=== PATIENT | female | born 1965 | race African-American/Black ===

== ENCOUNTER → 2016-06-28 | Outpatient (CLI) | payer MEDICARE, MEDICAID ==
[~2016-06-28] VITALS: Ht 149.9 cm; Wt 93.4 kg
[~2016-06-28] MED LIST: ACETAMINOPHEN500 MG ORAL; ALBUTEROL SULF8.5 GM INH; ALPRAZOLAM0.5 MG PO; ASPIRIN81 MG ORAL; ATENOLOL25 MG ORAL; AZITHROMYCIN250 MG ORAL; BENADRYL PO; BENADRYL50 MG ORAL; COLACE100 MG ORAL; CYCLOBENZAPRINE10 MG ORAL; CYMBALTA20 MG ORAL; DILAUDID8 MG PO; FLEXERIL10 MG PO; GABAPENTIN300 MG ORAL; LEVAQUIN500 MG ORAL; LORAZEPAM2 MG ORAL; LORTAB 5-500 T1 EACH PO; MEDROL DOSEPAK4 MG ORAL; METHADONE H5 MG/5 ML GT; NITROSTAT0.4 M1 SL; NORCO; NORCO 10-325 T1 EACH ORAL; NORCO 10/3251 EA ORAL; NORCO 5-325 TA1 EACH ORAL; OMEPRAZOLE20 M2 ORAL; OMEPRAZOLE40 MG PO; OXYCODONE HCL30 MG ORAL; OXYCONTIN; OXYCONTIN30 MG ORAL; POTASSIUM CHLO20 ME2 ORAL; PREDNISONE20 MG ORAL; PRILOSEC20 MG ORAL; PROAIR HFA8.5 GM INH; PROTONIX40 MG ORAL; TENORMIN25 MG ORAL; TOPAMAX50 MG ORAL; TRAMADOL HCL50 MG ORAL; TRAZODONE HCL300 MG PO; VERAPAMIL ER P300 MG PO; XANAX1 MG ORAL; ZANTAC150 MG ORAL
[2016-06-28 14:26] VITALS: BP 98/46
--- NOTE | 2016-06-28 15:13 | GI Initial Consult Note ---
History of Present Illness General Date patient seen: Jun 28, 2016 Time patient seen: 15:04 Referring physician: KYLEE Reason for Consultation: ANEMIA Present Illness HPI 50 year old female patient referred to [facility] by Dr. James for evaluation of anemia. the patient presents today with c/o of GERD, constipation, rectal bleed (black stool), occasional N/V, and abdominal bloating. Home Meds Active Scripts Albuterol Sulfate* (ALBUTEROL SULFATE MDI*) 8.5 Gm Hfa.aer.ad, 2 PUFF INH Q3H, # 1 INH 0 Refills Prov:Mere Florence P.ADina 05/27/15 Methylprednisolone (Methylprednisolone) 4 Mg Tab, 4 MG ORAL .as directed, #1 PACK 0 Refills Prov:Mere FlorenceADina 05/27/15 Levofloxacin* (LEVAQUIN*) 500 Mg Tablet, 500 MG ORAL DAILY, #7 TAB Prov:Mere Florence P.A. 05/27/15 Azithromycin* (ZITHROMAX*) 250 Mg Tablet, 250 MG ORAL DAILY, #6 TAB Take two tablets by mouth today, then take one tablet by mouth daily for four days Prov:BHARGAVI FRANCO M.D. 03/14/15 Albuterol Sulfate* (ALBUTEROL SULFATE MDI*) 8.5 Gm Hfa.aer.ad, 2 PUFF INH Q4H, # 1 INH 0 Refills Prov:BHARGAVI FRANCO M.D. 03/14/15 Prednisone* (PREDNISONE*) 20 Mg Tablet, 40 MG ORAL DAILY, #10 TAB Prov:BHARGAVI FRANCO M.D. 03/14/15 Tramadol Hcl* (ULTRAM*) 50 Mg Tablet, 50 MG ORAL Q6H Y for For Pain, #20 TAB Prov:JESUS SLADE M.D. 10/25/14 Pantoprazole* (PROTONIX*) 40 Mg Tabec, 40 MG ORAL DAILY for 30 Days, TAB Prov:JEAN CLAUDE ROMO 09/18/14 Nitroglycerin (NITROSTAT) 0.4 Mg Subl, 0.4 MG SL Q5M Y for Prn Chest Pain for 30 Days, TAB Prov:JEAN CLAUDE ROMO 09/18/14 Atenolol* (TENORMIN*) 25 Mg Tab, 25 MG ORAL DAILY, #30 TAB Prov:TATI ROMOASHELY 09/18/14 Aspirin* (ASPIRIN*) 81 Mg Chew, 81 MG ORAL DAILY for 30 Days, TAB Prov:JUDYURIELFERNANDOTATIASHELY 09/18/14 Albuterol Sulfate* (ALBUTEROL SULFATE MDI*) 1 Puff Puffs, 2 PUFF INH Q6HRT for 30 Days, EA Prov:JUDYKARTHIKEYANTATIASHELY 09/18/14 Acetaminophen* (TYLENOL EXTRA STRENGTH*) 500 Mg Tab, 500 MG ORAL Q4H Y for Mild Pain/Temp > 100.5 for 30 Days, TAB Prov:JEAN CLAUDE ROMO 09/18/14 Reported Medications Lorazepam* (LORAZEPAM*) 2 Mg Tablet, 2 MG ORAL THREE TIMES A DAY, TAB 10/10/14 Cyclobenzaprine Hcl* (FLEXERIL*) 10 Mg Tablet, 10 MG ORAL THREE TIMES A DAY, TAB 10/10/14 Hydrocodone/Acetaminophen (Hydrocodon-Acetaminophn 10-325) 1 Ea Tab, 1 TAB ORAL Q6H Y for For Pain, #30 TAB 0 Refills 10/10/14 Oxycodone Hcl (OXYCONTIN) 30 Mg Tab.er.12h, 30 MG ORAL EVERY 12 HOURS, TAB 10/10/14 Med list reviewed/reconciled: Yes Allergies: Coded Allergies: MORPHINE (Unverified Allergy, Intermediate, breakout, 12/30/11) Patient History History Provided By: Patient, Medical Record PMH Narrative Anemia asthma back pain neck pain GERD Rt breast CA renal failure (dialysis before) HTN anxiety / depression PSHx RT lumpectomy September 2015 Social History: Reports: other - occasional caffiene use. Review of Systems All Other Systems: negative except mentioned in HPI Physical Exam Vital Signs Date Time Temp Pulse Resp B/P Pulse Ox O2 Delivery O2 Flow Rate FiO2 06/28/16 14:26 98.0 61 18 98/46 100 Sp02 EP Interpretation: reviewed General Appearance: well appearing, no apparent distress, alert Head: normocephalic EENT: TMs normal Neck: full range of motion, supple Respiratory: normal breath sounds, no respiratory distress Cardiovascular: normal rate Gastrointestinal: normal inspection, non tender, soft, normal bowel sounds Rectal: normal exam Genitourinary: normal inspection Musculoskeletal: normal inspection, back normal Neurologic: normal inspection, alert, oriented x3 Psychiatric: normal inspection, judgement/insight normal, memory normal Skin: normal inspection, normal color, no rash, warm/dry Lymphatic: normal inspection, no adenopathy GI: Plan Problems: (1) GERD (gastroesophageal reflux disease) (2) Constipated (3) Rectal bleeding (4) Nausea & vomiting (5) Abdominal bloating (6) Colonoscopy planned Plan EGD/colonoscopy scheduled for 07/05/16 - [facility] & [facility] prep instructions given and acknowledged. Seen with Dr. Macedo. Thank you for referring this patient. Caryn Metz N.P. Jun 28, 2016 15:13
== END | disposition home or self-care (01) ==
LOC: PAN 13:58
DX: K21.9 Gastro-esophageal reflux disease without esophagitis (principal); K59.00 Constipation, unspecified; K62.5 Hemorrhage of anus and rectum; R11.2 Nausea with vomiting, unspecified; R14.0 Abdominal distension (gaseous); D64.9 Anemia, unspecified; J45.909 Unspecified asthma, uncomplicated; Z85.3 Personal history of malignant neoplasm of breast; I10 Essential (primary) hypertension; N17.9 Acute kidney failure, unspecified; Z88.6 Allergy status to analgesic agent; Z79.82 Long term (current) use of aspirin
CPT/HCPCS: 99201

== ENCOUNTER 2016-07-05 15:26 | Emergency (ER) | payer MEDICARE, MEDICAID ==
[~2016-07-05] VITALS: Ht 149.9 cm; Wt 90.7 kg
[~2016-07-05 15:26] MED LIST changes: -LR 1000ml ONE; -Lidocaine 1% MPF 10mg/ml 5ml ONE; -Lidocaine 1% Plain 30 ml INJ ONE; -Metoclopramide 10mg/2ml Inj IVP PRN; -Propofol 10mg/ml 20ml IV ONE; -Sodium Bicarbonate 8.4% 50ml Inj ONE
[2016-07-05 15:52] VITALS: BP 137/80
[2016-07-05 17:23] VITALS: BP 134/76
[2016-07-05] MEDS ORDERED: HYDROmorphone 1mg/ml Carpuject IVP ONE ×2 (17:30→19:15)
[2016-07-05] MEDS ORDERED: DiphenhydrAMINE 50mg/ml Inj IVP ONE (17:30)
[2016-07-05 18:54] VITALS: BP 130/74
[2016-07-05 19:42] VITALS: BP 137/80
--- NOTE | 2016-07-07 00:36 | Emergency Room Report ---
History of Present Illness General Chief Complaint: Pain Source: Patient Present Illness HPI Patient presents with complains of bodyache reports that she has Discrepancy with her pain management physician She was also given medications by her primary physician however she has also had difficulty obtaining those medications Patient had upper and lower endoscopy earlier today And presents for her general bodyaches Patient complains of upper shoulder pain bilaterally Denies any shortness of breath Allergies: Coded Allergies: MORPHINE (Unverified Allergy, Intermediate, breakout, 12/30/11) Patient History Past Medical History: see triage record Pertinent Family History: none Last Menstrual Period: 2011 Now: No Reviewed Nursing Documentation: PMH: Agreed, PSxH: Agreed Nursing Documentation-PMH Past Medical History: No History, Except For Hx Cardiac Problems: Yes Hx Hypertension: Yes Hx Pacemaker: No - anemia Hx Asthma: Yes Hx COPD: No - spine surgery Hx Cancer: Yes Hx Gastrointestinal Problems: Yes - c/o abd pain Hx Dialysis: Yes - 11/2015-02/2016 Hx Neurological Problems: Yes - hx migraines-last episode 07/02/2016 Hx Neurologic Surgery: Yes - LUMBAR FUSION-2000 Review of Systems All Other Systems: negative except mentioned in HPI Physical Exam Vital Signs Date Time Temp Pulse Resp B/P Pulse Ox O2 Delivery O2 Flow Rate FiO2 07/05/16 15:40 98.2 84 16 137/80 100 Room Air Sp02 EP Interpretation: reviewed, normal General Appearance: well appearing, no apparent distress Head: normocephalic, atraumatic Eyes: bilateral eye EOMI, bilateral eye PERRL ENT: hearing grossly normal, normal pharynx, TMs + canals normal, uvula midline Neck: full range of motion, supple, no meningismus, no bony tend Respiratory: lungs clear, normal breath sounds, no rhonchi, no respiratory distress, no retraction, no accessory muscle use Cardiovascular #1: normal peripheral pulses, regular rate, rhythm, no edema, no gallop, no JVD, no murmur Gastrointestinal: normal bowel sounds, non tender, soft, no mass, no organomegaly, non-distended, no guarding, no hernia, no pulsatile mass, no rebound Genitourinary: no CVA tenderness Musculoskeletal: normal inspection Neurologic: oriented x3, responsive, oncology patient navigator III-XII nml as tested, motor strength/ tone normal, sensory intact Psychiatric: mood/affect normal Skin: normal color, no rash, warm/dry, palpation normal Lymphatic: normal inspection, no adenopathy Medical Decision Making Diagnostic Impression: Primary Impression: myalgia ER Course Patient's lung sounds are appropriate clinical evaluation is appropriate there is no findings to suggest pathology with the patient's procedure today as far as bowel perforation patient was medicated for pain And will have close outpatient followup Last Vital Signs Date Time Temp Pulse Resp B/P Pulse Ox O2 Delivery O2 Flow Rate FiO2 07/05/16 19:42 98.2 79 16 137/80 100 Room Air Status: improved Disposition: HOME, SELF-CARE Condition: Improved Referrals: JEAN CLAUDE ROMO (PCP) Patient Instructions: Muscle Pain, Adult Additional Instructions: Patient is provided with the discharge instructions notified to follow up with primary doctor in the next 2-3 days otherwise return to the er with any worsening symptoms. Please note that this report is being documented using zhouwu technology. This can lead to erroneous entry secondary to incorrect interpretation by the dictating instrument. HERI FERNÁNDEZ D.O. Jul 07, 2016 00:36
== END 2016-07-05 19:42 | disposition home or self-care (01) ==
LOC: EMR 16:01
DX: M79.1 Myalgia (principal); J45.909 Unspecified asthma, uncomplicated; I10 Essential (primary) hypertension; Z85.9 Personal history of malignant neoplasm, unspecified; Z98.1 Arthrodesis status
CPT/HCPCS: 96374; 96375; 99284; J1170; J1200; J2405

== ENCOUNTER → 2016-07-05 | Day surgery (SDC) | payer MEDICARE, MEDICAID ==
[~2016-07-05] VITALS: Ht 149.9 cm; Wt 94.3 kg
[2016-07-05] VITALS (10 sets, daily range): BP systolic 122–168; BP diastolic 70–100
[~2016-07-05] MED LIST changes: +LR 1000ml ONE; +Lidocaine 1% MPF 10mg/ml 5ml ONE; +Lidocaine 1% Plain 30 ml INJ ONE; +Metoclopramide 10mg/2ml Inj IVP PRN; +Propofol 10mg/ml 20ml IV ONE; +Sodium Bicarbonate 8.4% 50ml Inj ONE
--- NOTE | 2016-07-05 09:38 | Pre-Procedure Note/Attestation ---
Pre-Procedure Note/Attestation Complete Prior to Procedure Planned Procedure: not applicable Procedure Narrative: egd/colonoscopy Indications for Procedure Pre-Operative Diagnosis: anemia Attestation I attest that I discussed the nature of the procedure; its benefits; risks and complications; and alternatives (and the risks and benefits of such alternatives ), prior to the procedure, with the patient (or the patient's legal sales representative meats). I attest that, if there was a reasonable possibility of needing a blood transfusion, the patient (or the patient's legal sales representative meats) was given the [facility] standardized written summary, pursuant to the Stuart Fel[place] Blood Safety Act ([place] Health and Safety Code # 1645, as amended). I attest that I re-evaluated the patient just prior to the surgery and that there has been no change in the patient's H&P, except as documented below: HECTOR LEACH Jul 05, 2016 09:38
--- NOTE | 2016-07-05 09:39 | Short Stay Surgery H&P ---
History of Present Illness History of Present Illness Chief Complaint anemia, see recent consult note HPI Milka Mejia is a 50 year old female who was admitted on for Anemia, Constipation Patient History Allergies: Coded Allergies: MORPHINE (Unverified Allergy, Intermediate, breakout, 12/30/11) PAST MEDICAL HISTORY: Past Surgeries: Social History: Medication History Scheduled Albuterol Sulfate* (Albuterol Sulfate Mdi*), 2 PUFF INH Q6HRT Alprazolam* (Xanax*), 1 MG PO QHS, (Reported) Aspirin* (Aspirin*), 81 MG ORAL DAILY Atenolol* (Tenormin*), 25 MG ORAL DAILY Docusate Sodium* (Colace*), 240 MG ORAL DAILY, (Reported) Duloxetine (Cymbalta), 30 MG ORAL DAILY, (Reported) Gabapentin* (Gabapentin*), 300 MG ORAL BEDTIME, (Reported) Omeprazole (Omeprazole), 20 MG ORAL DAILY, (Reported) Ranitidine Hcl* (Zantac*), 150 MG ORAL TWICE A DAY, (Reported) Topiramate (Topamax), 50 MG ORAL EVERY 12 HOURS, (Reported) Scheduled PRN Acetaminophen* (Tylenol Extra Strength*), 500 MG ORAL Q4H PRN for Mild Pain/ Temp > 100.5 Miscellaneous Medications Alprazolam* (Xanax*), 1 TAB ORAL, (Reported) Hydromorphone Hcl (Dilaudid), 4 MG PO, (Reported) Methadone HCl (Methadone HCl), 1 MG GT, (Reported) Verapamil Hcl (Verapamil Er Pm), 300 MG PO, (Reported) Discontinued Medications Albuterol Sulfate* (Albuterol Sulfate Mdi*), 2 PUFF INH Q4H Discontinued Reason: Therapy completed Albuterol Sulfate* (Albuterol Sulfate Mdi*), 2 PUFF INH Q3H Discontinued Reason: Therapy completed Azithromycin* (Zithromax*), 250 MG ORAL DAILY Discontinued Reason: MD discontinued med Cyclobenzaprine Hcl* (Flexeril*), 10 MG ORAL THREE TIMES A DAY, (Reported) Discontinued Reason: MD discontinued med Hydrocodone/Acetaminophen (Hydrocodon-Acetaminophn 10-325), 1 TAB ORAL Q6H PRN for For Pain, (Reported) Discontinued Reason: Therapy completed Levofloxacin* (Levaquin*), 500 MG ORAL DAILY Discontinued Reason: Therapy completed Lorazepam* (Lorazepam*), 2 MG ORAL THREE TIMES A DAY, (Reported) Discontinued Reason: Therapy completed Methylprednisolone (Methylprednisolone), 4 MG ORAL .as directed Discontinued Reason: MD discontinued med Nitroglycerin (Nitrostat), 0.4 MG SL Q5M PRN for Prn Chest Pain Discontinued Reason: Therapy completed Oxycodone Hcl (Oxycontin), 30 MG ORAL EVERY 12 HOURS, (Reported) Discontinued Reason: Therapy completed Pantoprazole* (Protonix*), 40 MG ORAL DAILY Discontinued Reason: Therapy completed Prednisone* (Prednisone*), 40 MG ORAL DAILY Discontinued Reason: MD discontinued med Tramadol Hcl* (Ultram*), 50 MG ORAL Q6H PRN for For Pain Discontinued Reason: Therapy completed Plan Attestation Are the patient's medical conditions optimized for surgery? HECTOR LEACH Jul 05, 2016 09:39
--- NOTE | 2016-07-05 10:00 | Anethesia Preoperative Eval ---
Anesthesia Pre-op PMH/ROS General Date of Evaluation: Jul 05, 2016 Time of Evaluation: 09:59 Anesthesiologist: geni ASA Score: ASA 3 Mallampati Score Class I : Soft palate, uvula, fauces, pillars visible Class II: Soft palate, uvula, fauces visible Class III: Soft palate, base of uvula visible Class IV: Only hard plate visible Mallampati Classification: Class III Surgeon: guillermo Diagnosis: anemia/constipation Surgical Procedure: EGD/Colonoscopy Anesthesia History: none Family History: no anesthesia problems Allergies: Coded Allergies: MORPHINE (Unverified Allergy, Intermediate, breakout, 12/30/11) Medications: see eMAR Past Medical History Cardiovascular: Reports: CAD, HTN Gastrointestinal/Genitourinary: Reports: CRI, GERD HEENT: Denies: [place] (L), [place] (R), cataract (L), cataract (R), glaucoma, other Hematology/Immune: Reports: anemia Other: obesity PMH Narrative: Anemia asthma back pain neck pain GERD Rt breast CA renal failure (dialysis before) HTN anxiety / depression Anesthesia Pre-op Phys. Exam Physician Exam Last Vital Signs Date Time Temp Pulse Resp B/P Pulse Ox O2 Delivery O2 Flow Rate FiO2 07/05/16 09:51 97.5 65 20 122/70 99 Room Air Constitutional: NAD Neurologic: CN 2-12 intact Cardiovascular: RRR Respiratory: CTA Gastrointestinal: S/NT/ND Airway Exam Mallampati Classification 3 Mallampati Score: Class III ROM: limited Dentures: no lower, no upper Anesthesia Pre-op A/P Studies Pre-op Studies: EKG - SR Risk Assessment & Plan Plan: mac Status Change Before Surgery: No Pre-Antibiotics Drug: none NUNO PENG LEAD CASTER HELPER Jul 05, 2016 09:59
[2016-07-05 10:27] LABS: BASOPHILS % (AUTO) 1.8 % (0.0-2.0); EOSINOPHILS % (AUTO) 1.4 % (0.0-3.0); LYMPHOCYTES % (AUTO) 40.3 % (20.0-45.0); MEAN CORPUSCULAR HEMOGLOBIN 30.9 PG (27.0-31.0); MEAN CORPUSCULAR HGB CONC 32.6 G/DL (32.0-36.0); MEAN CORPUSCULAR VOLUME 95 FL (80-99); MEAN PLATELET VOLUME 8.3 FL (6.5-10.1); MONOCYTES % (AUTO) 3.7 % (1.0-10.0); NEUTROPHILS % (AUTO) 52.7 % (45.0-75.0); PLATELET COUNT 332 K/UL (150-450); RED BLOOD COUNT 4.59 M/UL (4.20-5.40); RED CELL DISTRIBUTION WIDTH 12.7 % (11.6-14.8); WHITE BLOOD COUNT 8.2 K/UL (4.8-10.8)
[2016-07-05 10:44] LABS: ANION GAP 19 (5-15); CALCIUM 9.5 mg/dL (8.6-10.2); CARBON DIOXIDE 20 mEQ/L (20-30); CHLORIDE 103 mEQ/L (98-107); CREATININE 0.8 mg/dL (0.5-0.9); GLOMERULAR FILTRATION RATE > 60 mL/min (>60); POTASSIUM 3.5 mEQ/L (3.4-4.9); SODIUM 142 mEQ/L (135-145)
[2016-07-05 10:52] LABS: HEMOLYSIS 9; IRON 143 ug/dL (37-145); TOTAL IRON BINDING CAPACITY 328 ug/dL (250-400)
--- NOTE | 2016-07-05 13:16 | Endoscopy Procedure Note ---
Endoscopy Procedure Note Indication for Procedure: anemia, screening colon, GERD Procedures Performed: EGD, colonoscopy Operative Findings/Diagnosis: gastritis, hemorrhoids Specimen: yes Pt Tolerated Procedure Well: Yes Estimated Blood Loss: none Anesthesiologist: alexi Anesthesia: MAC Implant(s) used?: No 50 yrs or older w/o bx or poly: Yes 10yrs. F/U not recommended: Yes If not recommended, why?: Above average risk 10 yrs. F/U needed: Yes 18 years or older w/prev. colo: No HECTOR LEACH Jul 05, 2016 13:16
--- NOTE | 2016-07-05 13:41 | Immediate Post-Op Evaluation ---
Immediate Post-Op Evalulation Immediate Post-Op Evalulation Procedure: EGD/Colonoscopy Date of Evaluation: Jul 05, 2016 Time of Evaluation: 13:40 Blood Pressure Systolic: 155 Blood Pressure Diastolic: 80 Pulse Rate: 86 Respiratory Rate: 14 O2 Sat by Pulse Oximetry: 100 Nausea: No Vomiting: No Complications none Patient Status: awake, patent Hydration Status: adequate Drug: none NUNO PENG CRNA Jul 05, 2016 13:41
--- NOTE | 2016-07-05 13:42 | 48 Hour Post Anesthesia Eval ---
Post Anesthesia Evaluation Procedure: EGD/Colonoscopy Date of Evaluation: Jul 05, 2016 Time of Evaluation: 13:41 Blood Pressure Systolic: 155 0: 62 Pulse Rate: 80 O2 Sat by Pulse Oximetry: 100 Airway: patent Nausea: No Vomiting: No Hydration Status: adequate Mental Status/LOC: patient returned to baseline Post-Anesthesia Complications: none Follow-up care needed: N/A NUNO PENG CRNA Jul 05, 2016 13:42
--- NOTE | 2016-07-06 08:38 | Procedure Note ---
DATE OF PROCEDURE: 07/05/2016 SURGEON: Mauricio Macedo M.D. PROCEDURE: Upper endoscopy biopsy and colonoscopy. ANESTHESIA: Per Nadeen Tarrillion INDICATION: Anemia and screening colonoscopy evaluation. The procedure, risks, benefits, and possible consequences, including hemorrhage, aspiration, perforation and infection, and alternative treatments, were explained to the patient/legal guardian by Dr. Mauricio Macedo and the patient/legal guardian understood and accepted these risks. DESCRIPTION OF PROCEDURE: After informed consent was obtained, and the patient was adequately sedated, Olympus upper endoscope was advanced from mouth into the second portion of duodenum and retroflexion was performed of the stomach. The patient has diffuse gastritis. Random biopsy from antrum of the stomach was obtained to rule out H. pylori infection. Otherwise, the rest of the examination was within normal limits. Based on the laboratory the patient was turned over for colonoscopy. First, a rectal exam was performed, which showed positive for internal hemorrhoids. Then, the scope was advanced from the rectum into the cecum, the appendix orifice, ileocecal valve, and upper quadrant palpation. Quality of the prep was very good. The patient had evidence of some diverticulosis mostly in the right colon without any obvious diverticulitis. No obvious mass, polyp, or any pathology was seen. Retroflexion of rectum showed evidence of internal hemorrhoids. FINDINGS: 1. Gastritis, status post biopsy. 2. Diverticulosis in the right colon. 3. Internal hemorrhoids. RECOMMENDATIONS: Follow up biopsies and treat accordingly. I want to thank, Dr. Walter, for this kind referral. Mauricio Macedo M.D. DR: Oksana JOB#: [id number] CC: Kiko Walter M.D. [facility]
--- NOTE | 2016-07-09 18:20 | Cardiology Report ---
APPROVED REPORT EKG Measurement Heart [id number] Normal sinus rhythm Nonspecific T wave abnormality Abnormal ECG
== END | disposition home or self-care (01) ==
LOC: GAS 08:15
DX: Z12.11 Encounter for screening for malignant neoplasm of colon (principal); K64.8 Other hemorrhoids; K57.30 Diverticulosis of large intestine without perforation or abscess without bleeding; D64.9 Anemia, unspecified; K29.50 Unspecified chronic gastritis without bleeding; I25.10 Atherosclerotic heart disease of native coronary artery without angina pectoris; I12.9 Hypertensive chronic kidney disease with stage 1 through stage 4 chronic kidney disease, or unspecified chronic kidney disease; N18.9 Chronic kidney disease, unspecified; K21.9 Gastro-esophageal reflux disease without esophagitis; E66.9 Obesity, unspecified; J45.909 Unspecified asthma, uncomplicated; F32.9 Major depressive disorder, single episode, unspecified; F41.9 Anxiety disorder, unspecified; M54.9 Dorsalgia, unspecified; M54.2 Cervicalgia; Z79.82 Long term (current) use of aspirin; Z79.899 Other long term (current) drug therapy; Z88.5 Allergy status to narcotic agent
CPT/HCPCS: 36415; 43239; 80048; 83540; 83550; 85025; 93005; 96374; 96375; 99284; G0121; J1170; J1200; J2001; J2405; J2704; J3490; J7120; 94003; 94150

== ENCOUNTER 2016-08-20 11:48 | Emergency (ER) | payer MEDICARE, MEDICAID ==
[~2016-08-20] VITALS: Ht 149.9 cm; Wt 92.1 kg
[2016-08-20 11:51] VITALS: BP 164/90
[2016-08-20] MEDS: Ketorolac 60mg Inj IM ONE ×2 (12:36→12:40)
[2016-08-20 13:42] VITALS: BP 164/90
--- NOTE | 2016-08-20 20:37 | Emergency Room Report ---
History of Present Illness General Chief Complaint: Lower Back Pain or Injury Source: Patient, Medical Record Present Illness HPI 51 presents to the ED c/o 01/23 severity LBP x 3 days. pt. reports slipping on Sunday afternoon off of her bed. pt. denies hitting her head. denies LOC. Pt. states she has a hx of lumbar fusion, breast cancer, carpel tunnel syndrome and see's pain management regularly for spinal injections and is prescribed 4mg Dilaudid for pain. pt. states she is unable to be seen by her painter set, and her symptoms have not improved. pt. denies fevers, chills, rashes, in ability to walk, bruising. denies numbness tingling or loss of sensation or gross motor movements of the extremities, incontinence of bowel or bladder. Denies CP, Palpitations, LOC, AMS, dizziness, Changes in Vision, Sensation, paresthesias, or a sudden severe headache. Allergies: Coded Allergies: MORPHINE (Unverified Allergy, Intermediate, breakout, 12/30/11) Patient History Past Medical History: see triage record Past Surgical History: none Pertinent Family History: none Last Menstrual Period: menopause Now: No Immunizations: UTD Reviewed Nursing Documentation: PMH: Agreed, PSxH: Agreed Nursing Documentation-PMH Past Medical History: No History, Except For Hx Cardiac Problems: Yes Hx Hypertension: Yes Hx Pacemaker: No - anemia Hx Asthma: Yes Hx COPD: No - spine surgery Hx Cancer: Yes - right breast ca Hx Gastrointestinal Problems: Yes - c/o abd pain Hx Dialysis: Yes - 11/2015-02/2016 Hx Neurological Problems: Yes - hx migraines-last episode 07/02/2016 Hx Neurologic Surgery: Yes - LUMBAR FUSION-2000 Review of Systems All Other Systems: negative except mentioned in HPI Physical Exam Vital Signs Date Time Temp Pulse Resp B/P Pulse Ox O2 Delivery O2 Flow Rate FiO2 08/20/16 11:51 98.2 101 16 164/90 100 Room Air Sp02 EP Interpretation: reviewed, normal General Appearance: no apparent distress - pt. is able to sit in a POC, and ambulate to E room and sit on alternative chair without help or grimmacing., alert, GCS 15, non-toxic Head: normocephalic, atraumatic Eyes: bilateral eye PERRL, bilateral eye normal inspection ENT: hearing grossly normal, normal pharynx, no angioedema, normal voice Neck: full range of motion, no bony tend, supple/symm/no masses Respiratory: lungs clear, normal breath sounds, speaking full sentences Cardiovascular #1: regular rate, rhythm, no edema, normal capillary refill - good capillary refill to bilateral hands, and toes. Musculoskeletal: back normal, gait/station normal, normal range of motion, tender - Pt has moderate TTP to midline and bilateral paraspinal muscles of lumbar spine, small scar noted in the lower thoracic area approximately1.6 cm in size. otherwise no lesions, erythema, no increased temperature to palpation, no hematomas/bruises noted. pt. has FROM with pain. Neurologic: alert, oriented x3, responsive, motor strength/tone normal, sensory intact, normal gait, speech normal Psychiatric: judgement/insight normal, memory normal, mood/affect normal Skin: normal color, no rash, warm/dry, well hydrated Medical Decision Making PA Attestation Dr. Orta is my supervising Physician whom patient management has been discussed with. Diagnostic Impression: Primary Impression: eloped ER Course Pt. presents to the ED c/o 01/23 severity LBP x 3 days. pt. reports slipping on Sunday afternoon off of her bed. pt. denies hitting her head. denies LOC. Pt. states she has a hx of lumbar fusion, breast cancer, carpel tunnel syndrome and see's pain management regularly for spinal injections and is prescribed 4mg Dilaudid for pain. pt. states she is unable to be seen by her painter set, and her symptoms have not improved. pt. denies fevers, chills, rashes, in ability to walk, bruising, incontinence. Ddx considered but are not limited to Fracture, dislocation, contusion, Sprain/ Strain/Spasm, Epidural abscess, Neoplastic mets. Vital signs: are WNL, pt. is afebrile H&PE are most consistent with ORDERS: - CT L-Spine : no acute fractures, no stenosis, degenerative spondylosis, and no comment about evidence of fusion per official radiology report. ED INTERVENTIONS: - ------- (Declined) Toradol 45mg IM--- pt. 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 chase to never accept toradol. ---( Declined) [place] 5mg PO---- pt. states she can't have norco due to kidney problem, and that she can only have dilaudid, pt. states she was prescribed norco in the past however with one kidney can not tolerate. -- ( Declined) SOMA 350mg --- Pt. refused muscle relaxer stating she has never heard of this medication and she is only familiar with Dilaudid and will only accept Dilaudid, D/w pt. that I am attempting reasonable alternatives to treat her pain, that I will also be comfortable discharging her home with. I also d/w pt. that I looked on [employer] reporting of controlled substances and for the previous 8 months have not shown any prescriptions to her for controlled substances let alone Dilaudid. D/w pt. that the alternative medications I have offered are processed in the liver, not the kidneys, and that she would need to see her painter set for management of her pain exacerbation as the alternative options I have offered to her we not satisfying her. DISPOSITION: PT. Eloped. Last Vital Signs Date Time Temp Pulse Resp B/P Pulse Ox O2 Delivery O2 Flow Rate FiO2 08/20/16 13:42 98.2 101 16 164/90 100 Room Air Disposition: ELOPED Condition: Unknown Referrals: NON PHYSICIAN (PCP) Mere Florence August 20, 2016 20:37
--- NOTE | 2016-08-21 09:39 | Diagnostic Imaging Report ---
Indications: Low back pain Technique: Continuous helical CT imaging of the lumbar spine was performed with automatic exposure control on a Siemens sensation [address] scanner. Axial, coronal, and sagittal images were reconstructed at 3 mm slice thicknesses. CTDI volume(s): 28 mGy Total DLP: 722 mGy-cm Findings: Comparison: None Vertebral and intact. No fracture, facet subluxation or dislocation, lytic destruction, surrounding paraspinous soft tissue abnormality or other acute change identified. Small osteophytes present at the margins of each disc space. The L1-2 disc space is mildly narrowed. Mild facet hypertrophy L3-4 through L5-S1. No obvious significant spinal stenosis, lateral recess or neural foraminal narrowing results. There is suggestion of enlargement of the liver, incompletely imaged. IMPRESSION: No evidence of acute lumbar abnormality Degenerative spondylosis. No obvious neural impingement. Consider MRI for more sensitive evaluation, as clinically indicated. Questionable hepatomegaly Written preliminary report placed in PACS 08/20/2016 at 2980
== END 2016-08-20 13:30 | disposition left against medical advice (07) ==
LOC: EMR 12:20
DX: M54.5 Low back pain (principal); Z85.3 Personal history of malignant neoplasm of breast; G56.00 Carpal tunnel syndrome, unspecified upper limb; Z88.6 Allergy status to analgesic agent; I10 Essential (primary) hypertension; D64.9 Anemia, unspecified; J45.909 Unspecified asthma, uncomplicated
CPT/HCPCS: 72131; 99282

== ENCOUNTER 2016-11-01 01:38 | Emergency (ER) | payer MEDICARE, MEDICAID ==
[~2016-11-01] VITALS: Ht 149.9 cm; Wt 95.3 kg
[2016-11-01] MEDS ORDERED: DiphenhydrAMINE 25mg/10ml Elixir ORAL ONE (02:00)
[2016-11-01] MEDS ORDERED: PredniSONE 20mg tab ORAL ONE (02:00)
[2016-11-01] MEDS ORDERED: PREDNISONE20 MG ORAL (02:48)
[2016-11-01] MEDS ORDERED: RANITIDINE HCL150 MG ORAL (02:48)
[2016-11-01] MEDS ORDERED: DIPHENHYDRAMINE25 M1 ORAL (02:48)
[2016-11-01 02:58] VITALS: BP 132/89
--- NOTE | 2016-11-01 05:49 | Emergency Room Report ---
History of Present Illness General Chief Complaint: Allergic Reaction Source: Patient Present Illness HPI 51-year-old female presents to ED complaining of lip swelling. States that symptoms started yesterday around 3 PM after eating chips. Patient notes allergy to morphine but denies any known food or drug allergies. States itchiness in her throat. Patient took Benadryl at that time. Patient is here because the swelling is persisting. Denies any tongue swelling or throat swelling. Denies any shortness of breath. No aggravating relieving factors. Denies any other associated symptoms Allergies: Coded Allergies: MORPHINE (Unverified Allergy, Intermediate, breakout, 12/30/11) Patient History Past Medical History: HTN, asthma, CVA/TIA, migraines Past Surgical History: none Pertinent Family History: none Social History: Denies: alcohol use, drug use, smoking Now: No Immunizations: UTD Reviewed Nursing Documentation: PMH: Agreed, PSxH: Agreed Nursing Documentation-PMH Hx Cardiac Problems: Yes Hx Hypertension: Yes Hx Pacemaker: No - anemia Hx Asthma: Yes Hx COPD: No - spine surgery Hx Cancer: Yes - right breast ca Hx Gastrointestinal Problems: Yes - c/o abd pain Hx Dialysis: Yes - 11/2015-02/2016 Hx Neurological Problems: Yes - hx migraines-last episode 07/02/2016 Hx Neurologic Surgery: Yes - LUMBAR FUSION-2000 Review of Systems All Other Systems: negative except mentioned in HPI Physical Exam Vital Signs Date Time Temp Pulse Resp B/P Pulse Ox O2 Delivery O2 Flow Rate FiO2 11/01/16 01:44 98.1 101 16 141/92 97 Room Air Sp02 EP Interpretation: reviewed, normal General Appearance: no apparent distress, alert, GCS 15, non-toxic Head: normocephalic Eyes: bilateral eye PERRL, bilateral eye normal inspection ENT: normal ENT inspection, other - lower lip swelling Neck: normal inspection, full range of motion, supple, thyroid normal, other - no stridor Respiratory: normal inspection Cardiovascular #1: normal inspection Gastrointestinal: normal inspection Rectal: deferred Genitourinary: no CVA tenderness Musculoskeletal: normal inspection Neurologic: alert, oriented x3, responsive, motor strength/tone normal, sensory intact, speech normal Psychiatric: normal inspection Skin: normal inspection Lymphatic: normal inspection Medical Decision Making Diagnostic Impression: Primary Impression: Allergic reaction Qualified Codes: T78.40XA - Allergy, unspecified, initial encounter ER Course Hospital Course 51-year-old female presents ED complaining of swelling after eating chips Differential diagnoses include: allergic reaction, angioedema, anaphylaxis Clinical course 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 After initial history and physical, I ordered benedryl, prednisone, zantac Upon reassessment patient states she feels better. Given improvement of symptoms, lack of lip swelling, presence of urticarial rash, my suspicion for angioedema is low. Therefore I believe patient can be safely discharged to home. i. I feel this is a highly complex case requiring extensive working including EKG/Rhythm strip, Xray/CT/US, Blood/urine lab work, repeat exams while in ED, and administration of strong opiates/narcotics for pain control, admission to hospital or close patient follow up. Diagnosis - allergic reaction Stable and discharged to home with prescriptions for Zantac, prednisone, Benadryl. Followup with PMD. Return to ED if symptoms recur or worsen, Last Vital Signs Date Time Temp Pulse Resp B/P Pulse Ox O2 Delivery O2 Flow Rate FiO2 11/01/16 02:58 98.1 81 16 132/89 97 Room Air Status: improved Disposition: HOME, SELF-CARE Condition: Stable Scripts Ranitidine Hcl* (ZANTAC*) 150 Mg Tablet 150 MG ORAL TWICE A DAY for 5 Days, #30 TAB Prov: BHARGAVI FRANCO M.D. 11/01/16 Prednisone* (PREDNISONE*) 20 Mg Tablet 40 MG ORAL DAILY, #10 TAB Prov: BHARGAVI FRANCO M.D. 11/01/16 Diphenhydramine Hcl* (DIPHENHYDRAMINE HCL*) 25 Mg Capsule 25 MG ORAL Q6H Y for Itching for 5 Days, #30 CAP 0 Refills Prov: BHARGAVI FRANCO M.D. 11/01/16 Referrals: JEAN CLAUDE ROMO (PCP) Patient Instructions: Allergies BHARGAVI FRANCO M.D. Nov 01, 2016 05:49
== END 2016-11-01 02:55 | disposition home or self-care (01) ==
LOC: EMR 02:02
DX: T78.40XA Allergy, unspecified, initial encounter (principal); I10 Essential (primary) hypertension; J45.909 Unspecified asthma, uncomplicated; Z86.73 Personal history of transient ischemic attack (TIA), and cerebral infarction without residual deficits; Z85.3 Personal history of malignant neoplasm of breast; Z88.6 Allergy status to analgesic agent; X58.XXXA Exposure to other specified factors, initial encounter; Y92.9 Unspecified place or not applicable
CPT/HCPCS: 99284

== ENCOUNTER 2017-09-19 23:03 | Emergency (ER) | payer OTHER, MEDICAID ==
[~2017-09-19] VITALS: Ht 149.9 cm; Wt 90.7 kg
[~2017-09-19 23:03] MED LIST changes: +DIPHENHYDRAMINE25 M1 ORAL; +RANITIDINE HCL150 MG ORAL
[2017-09-19 23:13] VITALS: BP 108/67
[2017-09-19] MEDS ORDERED: CORTISPORIN EAR10 ML LEFT EAR (23:20)
[2017-09-19] MEDS ORDERED: Ibuprofen Susp 100mg/5ml ORAL ONE (23:30)
[2017-09-19 23:40] VITALS: BP 108/67
--- NOTE | 2017-09-20 00:16 | Emergency Room Report ---
History of Present Illness General Chief Complaint: Earache Source: Patient Present Illness HPI Patient is a 52-year-old female who presented after increased left-sided ear pain. Patient poorly had been having pain for 3-4 weeks. She reports having sharp pain to the left ear. The patient reports having worsening pain with movement of the ear. She denies any hearing loss. Denies recent trauma. The pain was worse with movement of the ear itself.The patient denies any fever or discharge. Allergies: Coded Allergies: MORPHINE (Unverified Allergy, Intermediate, breakout, 12/30/11) Patient History Past Medical History: see triage record Reviewed Nursing Documentation: PMH: Agreed; PSxH: Agreed Nursing Documentation-PMH Hx Cardiac Problems: Yes Hx Hypertension: Yes Hx Pacemaker: No - anemia Hx Asthma: Yes Hx COPD: No - spine surgery Hx Cancer: Yes - right breast ca Hx Gastrointestinal Problems: Yes - c/o abd pain Hx Dialysis: Yes - 11/2015-02/2016 Hx Neurological Problems: Yes - hx migraines-last episode 07/02/2016 Hx Neurologic Surgery: Yes - LUMBAR FUSION-2000 Review of Systems All Other Systems: negative except mentioned in HPI Physical Exam Vital Signs Date Time Temp Pulse Resp B/P (MAP) Pulse Ox O2 Delivery O2 Flow Rate FiO2 09/19/17 23:05 97.7 96 18 108/67 96 Room Air 97.7 Sp02 EP Interpretation: reviewed, normal General Appearance: normal inspection, well appearing, no apparent distress, alert, GCS 15, Chronically Ill Head: atraumatic ENT: normal ENT inspection, hearing grossly normal, normal voice, other - pain with movment of tragus, minimal canal swelling, tm normal Neck: normal inspection, full range of motion, supple, no bony tend Respiratory: normal inspection, lungs clear, normal breath sounds, no respiratory distress, no retraction, no wheezing Cardiovascular #1: regular rate, rhythm, no edema Gastrointestinal: normal inspection, normal bowel sounds, non tender, soft, no guarding, no hernia Genitourinary: no CVA tenderness Musculoskeletal: normal inspection, back normal, normal range of motion Neurologic: normal inspection, alert, oriented x3, responsive, society reporter III-XII nml as tested, speech normal Psychiatric: normal inspection, judgement/insight normal, mood/affect normal Skin: normal inspection, normal color, no rash Medical Decision Making Diagnostic Impression: Primary Impression: Earache on left ER Course Patient presented for ear pain. Differential diagnosis included was not limited to otitis media, malignant otitis externa, foreign body, cellulitis, mastoiditis, carotid dissection, myocardial infarction among others. Patient has a benign exam and does not appear to require any further imaging or laboratory testing at this time. The patient appears to have a mild external otitis. The patient was given oral oral ibuprofen for pain.The patient is advised to follow up with primary care physician for reevaluation.The patient is advised to follow up with primary care doctor in 1-2 days. Patient is advised to return if any worsening condition or if any changes in status that are concerning. This report is dictated with bContext sales lead generator software which may occasionally lead to discrepancies related to use of this software. Last Vital Signs Date Time Temp Pulse Resp B/P (MAP) Pulse Ox O2 Delivery O2 Flow Rate FiO2 09/19/17 23:40 97.7 18 108/67 96 Room Air 207.9 09/19/17 23:05 96 Status: improved Disposition: HOME, SELF-CARE Condition: Stable Scripts Neomycin/Polymyxin B Sulf/Hc* (CORTISPORIN EAR SOLUTION*) 10 Ml Solution 4 DROP LEFT EAR QID, #10 ML 0 Refills Prov: Guevara Peguero MD 09/19/17 Referrals: NOT CHOSEN IPA/MD,REFERRING (PCP) Patient Instructions: Otitis Externa Guevara Peguero MD Sep 20, 2017 00:16
== END 2017-09-19 23:40 | disposition home or self-care (01) ==
LOC: EMR 23:19
DX: H92.02 Otalgia, left ear (principal); I10 Essential (primary) hypertension; J45.909 Unspecified asthma, uncomplicated; Z85.3 Personal history of malignant neoplasm of breast; Z98.1 Arthrodesis status
CPT/HCPCS: 99283

== ENCOUNTER 2017-12-31 09:15 | Emergency (ER) | payer OTHER, MEDICAID ==
[~2017-12-31] VITALS: Ht 149.9 cm; Wt 97.5 kg
[~2017-12-31 09:15] MED LIST changes: +CORTISPORIN EAR10 ML LEFT EAR
[2017-12-31] MEDS ORDERED: DEPAKOTE250 MG PO (09:32)
[2017-12-31] MEDS ORDERED: CRESTOR20 MG ORAL (09:32)
[2017-12-31] MEDS ORDERED: QUETIAPINE FUM200 MG ORAL (09:32)
[2017-12-31] MEDS ORDERED: NORCO 5-325 TA1 EACH ORAL (09:33)
[2017-12-31] MEDS ORDERED: Ketorolac 60mg Inj IM ONE (09:45)
--- NOTE | 2017-12-31 11:30 | Emergency Room Report ---
History of Present Illness General Chief Complaint: Lower Extremity Injury Source: Patient Present Illness HPI Patient states she has chronic back pain. She does have an appointment to go for back rehabilitation. She also has an orthopedist. She is undergone imaging of her back. She states that she is having exacerbation of her back pain. She states it radiates down her right leg. She is out of her [place] requesting a refill. She denies any new symptoms. She denies fever or chills. She denies dysuria or hematuria. She denies weakness. She denies tingling or numbness. She has no other complaints. Allergies: Coded Allergies: MORPHINE (Unverified Allergy, Intermediate, breakout, 12/30/11) Patient History Past Medical History: see triage record, HTN, asthma, migraines, other - chronic pain Past Surgical History: other - Back surgery Social History: Denies: smoking, alcohol use, drug use Reviewed Nursing Documentation: PMH: Agreed; PSxH: Agreed Nursing Documentation-PMH Past Medical History: No History, Except For Hx Cardiac Problems: Yes Hx Hypertension: Yes Hx Pacemaker: No - anemia Hx Asthma: Yes Hx COPD: No - spine surgery Hx Cancer: Yes - right breast ca Hx Gastrointestinal Problems: Yes - c/o abd pain Hx Dialysis: Yes - 11/2015-02/2016 Hx Neurological Problems: Yes - hx migraines-last episode 07/02/2016 Hx Neurologic Surgery: Yes - LUMBAR FUSION-2000 Review of Systems All Other Systems: negative except mentioned in HPI Physical Exam Vital Signs Date Time Temp Pulse Resp B/P (MAP) Pulse Ox O2 Delivery O2 Flow Rate FiO2 12/31/17 09:24 97.9 80 18 118/80 98 Room Air 97.9 Sp02 EP Interpretation: reviewed, normal General Appearance: no apparent distress, alert, GCS 15, non-toxic, obese Head: normocephalic, atraumatic Eyes: bilateral eye normal inspection, bilateral eye PERRL ENT: hearing grossly normal, normal pharynx, no angioedema, normal voice Neck: full range of motion, supple/symm/no masses Respiratory: chest non-tender, lungs clear, normal breath sounds, no respiratory distress, no retraction, no accessory muscle use, speaking full sentences Cardiovascular #1: regular rate, rhythm, no edema Gastrointestinal: normal bowel sounds, non tender, soft, non-distended, no guarding, no rebound Rectal: deferred Musculoskeletal: back normal, gait/station normal, normal range of motion, non- tender Neurologic: alert, oriented x3, responsive, motor strength/tone normal, sensory intact, speech normal Psychiatric: judgement/insight normal, memory normal, mood/affect normal, no suicidal/homicidal ideation Skin: normal color, no rash, warm/dry, well hydrated Medical Decision Making Diagnostic Impression: Primary Impression: Sciatica ER Course This patient has a clinical presentation consistent with mechanical back pain/ sciatica. There are no red flags on physical exam. The patient denies any concerning features such as trauma, fevers, night sweats, history of malignancy , pain worse at night, IV drug abuse, urinary/fecal incontinence or retention, focal weakness or change in sensation, or refractory pain. Given these pertinent negatives in the history and physical exam an emergent cause of the back pain such as epidural abscess, metastasis to bone, cauda equina syndrome, and fracture is less likely. I also doubt emergent cardiovascular cause of back pain such as aortic dissection a ruptured abdominal aortic aneurysm given patient with equal pulses in all 4 extremities with no diastolic murmur or pulsatile abdominal mass. The patient was counseled that, though unlikely, the possibility of an emergent cause of back pain may still be present and that the patient should return immediately if symptoms persist or worsen. The symptoms are reproducible with movement. Patient had a benign evaluation and neurologic examination. The patient is under the care of a primary care physician in addition to a orthopedist. She is educated that she cannot receive narcotic pain medications from emergency departments. She was instructed to follow-up with her primary care physician and her primary orthopedic physician. No emergency etiology was identified. Last Vital Signs Date Time Temp Pulse Resp B/P (MAP) Pulse Ox O2 Delivery O2 Flow Rate FiO2 12/31/17 09:59 97.9 12/31/17 09:24 80 18 118/80 98 Room Air Status: improved Disposition: HOME, SELF-CARE Condition: Improved Referrals: NOT CHOSEN [facility]/,REFERRING (PCP) Additional Instructions: The Emergency Department only prescribes CONTROLLED SUBSTANCES for acute injuries. There is no evidence of an emergent condition requiring the requested medication refill, and no evidence of an acute injury. Controlled substances are very addictive and require close monitoring when being prescribed controlled substances an outpatient treatment The emergency department is not a resource to be used as outpatient followup, and therefore reserve the regular prescribing, or refill or regularly prescribed controlled substances for your PCP or your chronic pain management provider for your safety -- We urge you to follow up with your PRIMARY CARE DOCTOR who can fully evaluate you , Monitor your condition and safely prescribe any necessary medications that are controlled. Cesia Voss DO Dec 31, 2017 11:30
[2017-12-31] MEDS ORDERED: LIDODERM700 M1 TOPIC (11:32)
[2017-12-31] MEDS ORDERED: TRAMADOL HCL50 MG ORAL (11:32)
[2017-12-31 11:46] VITALS: BP 121/85
== END 2017-12-31 11:46 | disposition home or self-care (01) ==
LOC: EMR 09:45
DX: M54.30 Sciatica, unspecified side (principal); G89.29 Other chronic pain; M54.89 Other dorsalgia; I10 Essential (primary) hypertension; J45.909 Unspecified asthma, uncomplicated; Z88.5 Allergy status to narcotic agent; Z85.3 Personal history of malignant neoplasm of breast
CPT/HCPCS: 96372; 99283

== ENCOUNTER 2018-06-09 15:06 | Inpatient (IN) | payer OTHER, MEDICAID ==
[~2018-06-09] VITALS: Ht 149.9 cm; Wt 103.9 kg
[~2018-06-09 15:06] MED LIST changes: +ANUSOL-HC25 MG RECTAL; +CRESTOR20 MG ORAL; +DEPAKOTE250 MG PO; +LIDODERM700 M1 TOPIC; +QUETIAPINE FUM200 MG ORAL; +ROBITUSSIN NIG237 ML PO; +TUCKS1 EAC1 TP; +ZITHROMAX250 MG ORAL
[2018-06-09 15:25] VITALS: BP 140/76
--- NOTE | 2018-06-09 15:25 | NUR ---
ED Nurse Note: patient walked in by her self from home complaining of SOB, chest pain, cough. AAO x 4, skin is moist, intact, warm to touch. pt. connected to the monitor, will continue to monitor
[2018-06-09] MEDS ORDERED: Acetaminophen 500mg (ES) tab ORAL ONE (15:30)
[2018-06-09] MEDS ORDERED: Solu-MEDROL 125mg Inj IVP ONE (15:30)
[2018-06-09] MEDS ORDERED: Ipratropium 0.02% Inh Soln 2.5ml UD HHN ONE (15:30)
[2018-06-09] MEDS ORDERED: Albuterol ud Inhalation HHN ONE ×2 (15:30→19:00)
--- NOTE | 2018-06-09 15:40 | NUR ---
ED Nurse Note: RT by bed side, giving breathing treatment
--- NOTE | 2018-06-09 15:43 | Emergency Room Report ---
History of Present Illness General Chief Complaint: Dyspnea/Respdistress Source: Patient, Medical Record Present Illness HPI Patient is been ill for 2 days. She has wheezing. She's been using her inhaler. She's not taking steroids at this time. She has chest pain with a cough. She was at work and could not catch her breath. She has some vomiting with a cough and also some cough incontinence. This is her worst attack. She did not get a flu shot. The dyspnea is causing anxiety. No fevers, chills, palpitations, nausea, vomiting, diarrhea, dysuria, abdominal pain, depression, visual changes, headache. 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 Nursing Documentation: PMH: Agreed; PSxH: Agreed Nursing Documentation-PMH Hx Cardiac Problems: Yes Hx Hypertension: Yes Hx Pacemaker: No - anemia Hx Asthma: Yes Hx COPD: No - spine surgery Hx Diabetes: No - borderline Hx Cancer: Yes - right breast ca Hx Gastrointestinal Problems: Yes Hx Dialysis: Yes - 11/2015-02/2016 Hx Neurological Problems: Yes Hx Cerebrovascular Accident: No Hx Seizures: No Hx Neurologic Surgery: Yes - LUMBAR FUSION-2000 Review of Systems All Other Systems: negative except mentioned in HPI Physical Exam Vital Signs Date Time Temp Pulse Resp B/P (MAP) Pulse Ox O2 Delivery O2 Flow Rate FiO2 06/09/18 15:11 98.1 93 19 158/141 100 Room Air Sp02 EP Interpretation: reviewed, normal General Appearance: alert, GCS 15, non-toxic, mild distress - Paroxysms of cough Head: normocephalic, atraumatic Eyes: bilateral eye normal inspection, bilateral eye PERRL ENT: normal pharynx, moist mucus membranes Neck: supple, no meningismus Respiratory: wheezing, expiration, inspiration Cardiovascular #1: regular rate, rhythm, no edema Cardiovascular #2: 2+ radial (R) Gastrointestinal: normal inspection, normal bowel sounds, non tender, no mass, non-distended, overweight Musculoskeletal: back normal, normal range of motion, no calf tenderness Neurologic: alert, oriented x3, grossly normal Psychiatric: anxious Skin: normal inspection, warm/dry Medical Decision Making Diagnostic Impression: Primary Impression: Pneumonia Qualified Codes: J18.1 - Lobar pneumonia, unspecified organism Additional Impression: Bronchospasm ER Course Patient presents with paroxysms of cough, wheezing. Differential includes acute myocardial infarction, exacerbation of asthma, bronchitis, pneumonia amongst others. The patient will be evaluated with EKG, chest x-ray and labs. The patient will be treated with methylprednisolone and breathing treatments. The patient will be given Tylenol for her pain at the moment. EKG no injury. CXR R infiltrate. WBC normal. CMP normal. Lactate normal. Min improvement. Analgesia ordered with some improvement. Antibiotics ordered. Repeat breathing treatments. Cough somewhat improved and improved pain. Still with DOTY and exp wheezing. Repeat breathing treatments. Robitussin ordered and repeat analgesia. Admit med Dr. Walter (previously took care of patient). Laboratory Tests Test 06/09/18 15:45 White Blood Count 9.9 K/UL (4.8-10.8) Red Blood Count 4.19 M/UL (4.20-5.40) L Hemoglobin 13.0 G/DL (12.0-16.0) Hematocrit 40.0 % (37.0-47.0) Mean Corpuscular Volume 95 FL (80-99) Mean Corpuscular Hemoglobin 31.0 PG (27.0-31.0) Mean Corpuscular Hemoglobin Concent 32.4 G/DL (32.0-36.0) Red Cell Distribution Width 12.9 % (11.6-14.8) Platelet Count 326 K/UL (150-450) Mean Platelet Volume 7.5 FL (6.5-10.1) Neutrophils (%) (Auto) 70.8 % (45.0-75.0) Lymphocytes (%) (Auto) 21.3 % (20.0-45.0) Monocytes (%) (Auto) 6.0 % (1.0-10.0) Eosinophils (%) (Auto) 0.0 % (0.0-3.0) Basophils (%) (Auto) 2.0 % (0.0-2.0) Prothrombin Time 10.0 SEC (9.30-11.50) Prothrombin Time INR 0.9 (0.9-1.1) PTT 26 SEC (23-33) Sodium Level 141 MMOL/L (136-145) Potassium Level 4.0 MMOL/L (3.5-5.1) Chloride Level 106 MMOL/L (98-107) Carbon Dioxide Level 23 MMOL/L (21-32) Anion Gap 12 mmol/L (5-15) Blood Urea Nitrogen 11 mg/dL (7-18) Creatinine 0.9 MG/DL (0.55-1.30) Estimate Glomerular Filtration Rate > 60 mL/min (>60) Glucose Level 93 MG/DL (74-106) Lactic Acid Level 1.80 mmol/L (0.4-2.0) Calcium Level 9.2 MG/DL (8.5-10.1) Total Bilirubin 0.3 MG/DL (0.2-1.0) Aspartate Amino Transferase (AST) 33 U/L (15-37) Alanine Aminotransferase (ALT) 40 U/L (12-78) Alkaline Phosphatase 87 U/L (46-116) Total Creatine Kinase 478 U/L (26-308) H Troponin I 0.000 ng/mL (0.000-0.056) Pro-B-Type Natriuretic Peptide 72 pg/mL (0-125) Total Protein 8.1 G/DL (6.4-8.2) Albumin 3.7 G/DL (3.4-5.0) Globulin 4.4 g/dL Albumin/Globulin Ratio 0.8 (1.0-2.7) L Microbiology Date/Time Source Procedure Growth Status 06/09/18 15:48 Nasal Nares Influenza Types A,B Antigen (YUE) - Final Complete EKG Diagnostic Results Rate: normal Rhythm: NSR ST Segments: no acute changes - Nonspecific ST-T wav Rhythm Strip Diag. Results EP Interpretation: yes Rhythm: NSR, no PVC's, no ectopy Chest X-Ray Diagnostic Results Chest X-Ray Diagnostic Results : Chest X-Ray Ordered: Yes # of Views/Limited/Complete: 1 View Indication: Other EP Interpretation: Yes Interpretation: no effusion, no pneumothorax, other - R infiltrate Last Vital Signs Date Time Temp Pulse Resp B/P (MAP) Pulse Ox O2 Delivery O2 Flow Rate FiO2 06/09/18 19:56 98.0 83 15 135/74 98 Room Air 06/09/18 19:09 21 Status: improved Disposition: ADMITTED INPATIENT Condition: Serious Referrals: NOT CHOSEN IPA/MD,REFERRING (PCP) Tima Castro MD Jun 09, 2018 15:43
[2018-06-09 16:12] LABS: INR 0.9 (0.9-1.1)
[2018-06-09 16:15] LABS: ANION GAP 12 mmol/L (5-15); BLOOD UREA NITROGEN 11 mg/dL (7-18); CALCIUM 9.2 MG/DL (8.5-10.1); CARBON DIOXIDE 23 MMOL/L (21-32); CHLORIDE 106 MMOL/L (98-107); CREATININE 0.9 MG/DL (0.55-1.30); SODIUM 141 MMOL/L (136-145)
[2018-06-09 16:17] LABS: LYMPHOCYTES % (AUTO) 21.3 % (20.0-45.0); MEAN CORPUSCULAR VOLUME 95 FL (80-99); NEUTROPHILS % (AUTO) 70.8 % (45.0-75.0); PLATELET COUNT 326 K/UL (150-450); RED BLOOD COUNT 4.19 M/UL (4.20-5.40); RED CELL DISTRIBUTION WIDTH 12.9 % (11.6-14.8); WHITE BLOOD COUNT 9.9 K/UL (4.8-10.8)
[2018-06-09 16:25] LABS: ALANINE AMINOTRANSFERASE 40 U/L (12-78); ALBUMIN 3.7 G/DL (3.4-5.0); ALBUMIN/GLOBULIN RATIO 0.8 (1.0-2.7); ALKALINE PHOSPHATASE 87 U/L (46-116); ASPARTATE AMINO TRANSFERASE 33 U/L (15-37); BILIRUBIN,TOTAL 0.3 MG/DL (0.2-1.0); CREATINE KINASE 478 U/L (26-308)
[2018-06-09] MEDS ORDERED: fentaNYL 100 mcg/2 mL IV ONE ×2 (16:30→20:15)
[2018-06-09] MEDS ORDERED: cefTRIAXone 1 GM in NS 55 ML IVPB ONE (16:30)
[2018-06-09] MEDS ORDERED: TENORMIN50 MG ORAL (17:43)
[2018-06-09] MEDS ORDERED: MULTIVITAMINS1 EAC2 ORAL (17:54)
[2018-06-09] MEDS ORDERED: MELOXICAM15 MG PO (17:54)
[2018-06-09] MEDS ORDERED: VITAMIN D1000 UNI1 ORAL (17:54)
[2018-06-09] MEDS ORDERED: AMBIEN10 M1 ORAL (17:54)
[2018-06-09 19:12] VITALS: BP 135/74
--- NOTE | 2018-06-09 19:35 | NUR ---
ED Nurse Note: PT report given to Rn , pt status, conditionm and vital signs is given to reciveing RN. pt is stable for transfer. pt transfered with all belongins.
[2018-06-09] MEDS ORDERED: Guaifenesin/DM 10ml syrup ORAL STA (19:42)
--- NOTE | 2018-06-09 19:50 | NUR ---
ED Nurse Note: PT report given to Chasidy RN, all pt information, status and condition and vital signs have been reported to receving RN. Pt stable for transfer.
[2018-06-09 20:14] LABS: APPEARANCE,URINE CLEAR; BILIRUBIN, URINE NEGATIVE (NEGATIVE); COLOR,URINE PALE YELLOW; GLUCOSE, URINE (UA) NEGATIVE (NEGATIVE); KETONES,URINE NEGATIVE (NEGATIVE); LEUKOCYTE ESTERASE ,URINE NEGATIVE (NEGATIVE); NITRITE,URINE NEGATIVE (NEGATIVE); PH,URINE 7 (4.5-8.0); PROTEIN,URINE NEGATIVE (NEGATIVE); UROBILINOGEN,URINE NORMAL MG/DL (0.0-1.0)
--- NOTE | 2018-06-09 20:20 | NUR ---
NURSE NOTES: Received report from Kishore RN from ED. Pt arrived via gurney, belongings list signed, Pt awake and able to verbalize needs. Paged Dr Horne for admit orders. IV site asymptomatic, dressing dry and intact. Patient oriented to room, call light and belongings within reach. Arrival VS stable.
[2018-06-09 22:06] VITALS: BP 138/78
[2018-06-09] MEDS ORDERED: Albuterol 90mcg Inhaler 8gm INH PRN (23:00)
[2018-06-09] MEDS ORDERED: Norco 5mg/325mg tab ORAL PRN (23:00)
[2018-06-10] VITALS: BP 116/74
[2018-06-10] MEDS ORDERED: Solu-MEDROL 125mg Inj IVP ONE
[2018-06-10] MEDS: 1/2NS w/KCl 20mEq 1000ml 1,000 ML IV SCH ×3 (00:14→14:11)
[2018-06-10] MEDS: Zolpidem 5mg tab ORAL PRN ×2 (00:57→21:12)
[2018-06-10] MEDS: Albuterol ud Inhalation HHN PRN ×3 (03:56→14:25)
[2018-06-10 04:00] VITALS: BP 122/71
[2018-06-10] MEDS: Solu-MEDROL 40mg Inj IVP PRN ×4 (05:57→18:47)
[2018-06-10] MEDS ORDERED: Solu-MEDROL 40mg Inj IVP SCH (06:00)
--- NOTE | 2018-06-10 07:20 | NUR ---
HAND-OFF: Report given to JARET Saeed.
--- NOTE | 2018-06-10 07:52 | NUR ---
NURSE NOTES: Pt able to verbalize known needs. Area cluttered , cleared for infection control measures. Multiple saturated tissue papers on overhead table. Call light is in reach. Current paln of care will be followed
[2018-06-10 08:00] VITALS: BP 121/74
[2018-06-10] MEDS: Benzonatate 100mg Perles ORAL SCH ×4 (08:38→17:36)
[2018-06-10] MEDS: Docusate 250mg cap ORAL SCH (08:38)
[2018-06-10] MEDS: Aspirin Baby 81mg ORAL SCH (08:38)
[2018-06-10] MEDS: Heparin 5000 units/ml inj SUBQ SCH ×2 (08:40→20:54)
[2018-06-10] MEDS ORDERED: Lidocaine 1% MPF 10mg/ml 5ml INJ SCH (09:00)
[2018-06-10] MEDS ORDERED: Lidocaine 1% Plain 30 ml INJ SCH (09:00)
--- NOTE | 2018-06-10 10:15 | NUR ---
NURSE NOTES: Dr Hill phoned to report that pt refused Rocephin Im . Verbal message left. Awaiting return phone call. R/B explained. " IV work better on me" Pt also requested omeprazole for her stomach. Per pt statement has been taken this medication in the morning
--- NOTE | 2018-06-10 11:20 | NUR ---
NURSE NOTES: Dr James here made aware of pt refusal of Rocephin Im gave orders to change order to Rocephin IVPB. also made aware of pt request for omeprazole. Order placed for protonix qd 2 availability
[2018-06-10 12:00] VITALS: BP 124/77
[2018-06-10] MEDS: cefTRIAXone 1 GM in D5W 55 ML IVPB SCH (12:16)
--- NOTE | 2018-06-10 12:16 | Diagnostic Imaging Report ---
Indication: Dyspnea Comparison: 01/09/2015 A single view chest radiograph was obtained. Findings: Question of a basilar infiltrate demonstrated. Suggest repeat examination with better inspiration. Heart size is stable and in the upper limits of normal. Lung volumes are slightly low. Bones are unremarkable. IMPRESSION: Question of a basilar infiltrates. Atelectasis is possible.
--- NOTE | 2018-06-10 13:27 | NUR ---
NURSE NOTES: Pt requested solumederol for chest tightness, Diversity Specialist prepared solumedrol, informed pt that she was receiving solumedrol, and purpose of medication. Immediately after administration' When are you giving me the medication for chest ; my chest and back hurt, " Diversity Specialist explained " the action of solumedrol" I am sorry I forgot" Diversity Specialist provided pt with tessalon for cough, " You gave me this already" Diversity Specialist explained the medication before administration. Short term memory does not appear to be intact. Will continue to monitor pt. Call light well in reach
[2018-06-10] MEDS: Acetaminophen 500mg (ES) tab ORAL PRN (14:23)
--- NOTE | 2018-06-10 14:30 | History and Physical Report ---
DATE OF ADMISSION: 06/09/2018 CHIEF COMPLAINT: Shortness of breath and atypical chest pain. HISTORY OF PRESENT ILLNESS: This is a 52-year-old female who used to be one of my regular office patients up until about 2 years ago. The patient moved to another area. She presented yesterday afternoon to the emergency department with productive yellow cough and gradually developing shortness of breath. The patient is admitted with tentative diagnosis of pneumonia to the regular floor. PAST MEDICAL HISTORY: 1. Morbid obesity. 2. Degenerative joint disease. 3. Opiate dependence. 4. Chronic low back pain. 5. Anxiety. 6. Hypertensive cardiovascular disease. 7. Gastroesophageal reflux disease. 8. Polypharmacy. 9. Status post right breast lumpectomy 2 years ago for CA. HOME MEDICATIONS: Include Arrey p.r.n., albuterol inhaler, Xanax, baby aspirin, atenolol, azithromycin, vitamin D3, doxylamine, Colace, Anusol, meloxicam, multivitamins, omeprazole, prednisone, Crestor, tramadol, Ambien. ALLERGIES: Morphine. FAMILY HISTORY: Unremarkable. SOCIAL HISTORY: She is nondrinker and nonsmoker. REVIEW OF SYSTEMS: HEENT: Hearing and eyesight are normal. ENDOCRINE: No history of diabetes, thyroid or adrenal problems. RESPIRATORY: Please refer to history of present illness. CARDIAC: She has atypical chest pain. GASTROINTESTINAL: She has chronic constipation. GENITOURINARY: She denies dysuria, frequency, urgency, or hematuria. NEUROLOGIC: No history of stroke, syncope, or Parkinson disease. PHYSICAL EXAMINATION: GENERAL: This is a middle-aged female, who is in no acute distress. VITAL SIGNS: Blood pressure is 121/74, pulse is 91 and regular, respirations 20, and temperature 97.3. HEENT: Head is normocephalic and atraumatic. Pupils are equal, round, and reactive to light and accommodation consensually. NECK: Supple. Trachea midline. There was no lymphadenopathy or thyromegaly. LUNGS: Bilateral rhonchi and wheezes. HEART: Regular rate and rhythm without rubs, murmurs, or gallops. ABDOMEN: Soft and nontender. Bowel sounds were active. EXTREMITIES: No clubbing, cyanosis, or edema. NEUROLOGIC: She is alert and oriented x4. Cranial nerves II through XII intact. LABORATORY AND ANCILLARY DATA: A chest x-ray shows a right-sided infiltrate. EKG, normal sinus rhythm. ASSESSMENT: 1. Right-sided pneumonia. 2. Morbid obesity. 3. Degenerative joint disease. 4. Opiate dependence. 5. Chronic low back pain. 6. Anxiety. 7. Hypertensive cardiovascular disease. 8. Gastroesophageal reflux disease. 9. Polypharmacy. 10. Status post right breast lumpectomy 2 years ago for CA. PLAN: 1. IV antibiotics. 2. Bronchodilators. 3. Continue home medications. Kiko Walter M.D. DR: Reena JOB#: [id number] CC:
--- NOTE | 2018-06-10 15:54 | NUR ---
NURSE NOTES: Pt is complaining of pain with cough receiving tessalon states it is non effective. Call for possible replacement . made aware of Morphine Allergy
--- NOTE | 2018-06-10 15:55 | NUR ---
*-* INSURANCE *-* CLINICALS HAVE BEEN FAXED TO: MARIANA FLYNNM:GERARDO JARRELL P:[phone] F:[phone] REF# [id number]
[2018-06-10 16:00] VITALS: BP 130/75
--- NOTE | 2018-06-10 16:52 | Cardiology Report ---
APPROVED REPORT EKG Measurement Heart [id number] Normal sinus rhythm Septal infarct, age undetermined Abnormal ECG
--- NOTE | 2018-06-10 18:02 | NUR ---
CASE MANAGEMENT: INITIAL REVIEW 52 YO PRESENTED TO OUR ED FROM HOME CC: SOB PMHx: ANEMIA. BORDERLINE DM. RIGHT BREAST CA. ASTHMA. SI: PNA. T 98.1 HR 93 RR 19 B/P 158/141 SATS 100% ON RA TOTAL CK 478 IS: DUO NEB HHN X1 TYLENOL PO X1 SOLU MEDROL IV X1 NS BOLUS X1 ZOFRAN IV X1 FENTANYL IV X1 CEFTRIAXONE IV X1 LEVOFLOXACIN IV X1 PATIENT ADMITTED TO MED/SURG 06/09/2018 @ 1700 DCP: PATIENT TO BE DISCHARGED TO HOME ONCE MEDICALLY CLEARED. PLAN OF CARE: 1. IV antibiotics. 2. Bronchodilators. 3. Continue home medications. Addendum: 06/10/18 at 2015 by Genet Saul CM [employer]
--- NOTE | 2018-06-10 19:53 | NUR ---
NURSE NOTES: Received patient in bed, awake, alert, oriented, uses bed side commode, ambulates with steady gate. No acute distress noted or reported, call light is within reach, bed is in low position, locked and alarm is on. Will continue to monitor for safety and comfort.
[2018-06-10 20:00] VITALS: BP 144/81
--- NOTE | 2018-06-10 20:31 | NUR ---
NURSE NOTES: Rt provided breathing to pt , solumedrol given x [address] Patel did not return juli related to pt verbalizations that tensalon was not effective, and is requesting cough syrup. Oncoming nurse made aware. Rocephin IV given , no verbalizations of side effects noted or reported. Bedside commode at bedside, due to pt frequent bathroom trips, and risk of dislodgment of iv site. to left outer arm. Pt states she is a hard stick. Refused to have a BM bedside commode. BM x 2 this shift. Current paln of care will be followed
--- NOTE | 2018-06-10 20:36 | NUR ---
HAND-OFF: Report given to Rowena RAYGOZA.
[2018-06-10] MEDS: ALPRAZolam 0.5mg tab ORAL SCH (20:53)
[2018-06-10] MEDS: traMADol 50mg tab ORAL PRN (23:05)
[2018-06-11 00:28] VITALS: BP 140/87
[2018-06-11] MEDS: Solu-MEDROL 40mg Inj IVP PRN ×2 (00:49→09:46)
[2018-06-11] MEDS: Albuterol ud Inhalation HHN PRN ×3 (01:55→21:20)
[2018-06-11] MEDS: Acetaminophen 500mg (ES) tab ORAL PRN (03:57)
[2018-06-11 04:48] VITALS: BP 117/61
--- NOTE | 2018-06-11 06:58 | NUR ---
NURSE NOTES: Patient stated that current pain medications are not working for her, they are not relieving pain, DILSHAD rivero MD, awaiting call back.
--- NOTE | 2018-06-11 07:01 | NUR ---
HAND-OFF: Report given to Neisha RAYGOZA. Addendum: 06/11/18 at 0705 by DASHA CHANCE RN Report given to Robert RAYGOZA
--- NOTE | 2018-06-11 07:50 | NUR ---
NURSE NOTES: Patient alert x4, on room air, no sign of distress and shortness of breath; IV L-arm, fluid running; patient ambulatory. According to the report PM nurse, patient was asking to Morphine for pain, however patient is allergy to Morphine, PM nurse, called to MD Walter, didn't receive any order, and will follow up on that. Bed at lowest position, side rails up x2, breaks engaged. Will keep monitoring.
[2018-06-11 08:00] VITALS: BP 138/88
[2018-06-11] MEDS: Docusate 250mg cap ORAL SCH (08:36)
[2018-06-11] MEDS: Aspirin Baby 81mg ORAL SCH (08:36)
[2018-06-11] MEDS: traMADol 50mg tab ORAL PRN ×2 (08:36→15:45)
[2018-06-11] MEDS: Benzonatate 100mg Perles ORAL SCH ×3 (08:36→17:02)
[2018-06-11] MEDS: Heparin 5000 units/ml inj SUBQ SCH ×2 (08:38→21:16)
[2018-06-11 12:00] VITALS: BP 114/69
[2018-06-11] MEDS: cefTRIAXone 1 GM in D5W 55 ML IVPB SCH (12:51)
--- NOTE | 2018-06-11 12:51 | General Progress Note ---
Assessment/Plan Assessment/Plan Pneumonia - IV ABx COPD - bronchodilators DJD- symptomatic Rx R/O DVT Subjective Allergies: Coded Allergies: MORPHINE (Unverified Allergy, Intermediate, breakout, 12/30/11) Subjective C/o pain + SOB. Objective Last 24 Hour Vital Signs Date Time Temp Pulse Resp B/P (MAP) Pulse Ox O2 Delivery O2 Flow Rate FiO2 06/11/18 09:06 97.7 06/11/18 09:00 Room Air Room Air 06/11/18 08:37 93 130/81 06/11/18 08:00 99.0 93 19 138/88 (105) 06/11/18 07:14 74 20 Room Air 21 06/11/18 04:48 97.7 90 18 117/61 (79) 06/11/18 02:02 81 20 100 Room Air 21 06/11/18 01:55 78 20 97 Room Air 21 06/11/18 00:28 98.0 79 18 140/87 (104) 06/10/18 22:01 Room Air Room Air 06/10/18 21:44 81 24 Room Air 21 06/10/18 20:00 98.1 100 18 144/81 (102) 06/10/18 16:00 98.1 80 19 130/75 (93) 06/10/18 14:35 78 20 100 Room Air 21 06/10/18 14:24 80 20 96 Room Air 21 Intake and Output 06/10/18 06/11/18 19:00 07:00 Intake Total 1730 ml 600 ml Balance 1730 ml 600 ml Intake Oral 1000 ml IV Total 730 ml Other 600 ml # Voids 6 2 Height (Feet): 4 Height (Inches): 11.00 Weight (Pounds): 280 Objective Morbidly obese. Cv RR Lungs B wheezes Abd pendulous. SNT. BS + E No CCE Kiko Walter MD Jun 11, 2018 12:50
[2018-06-11] MEDS: 1/2NS w/KCl 20mEq 1000ml 1,000 ML IV SCH (13:21)
--- NOTE | 2018-06-11 14:35 | Diagnostic Imaging Report ---
APPROVED REPORT CPT Code: 83169 Present Symptoms Shortness of breath BILATERAL: Imaging reveals a patent deep venous system bilaterally. There is no evidence of thrombus within the common femoral, superficial femoral, popliteal or tibial segments. The greater saphenous veins are within normal limits. Doppler indicates normal spontaneous flow within these segments.
--- NOTE | 2018-06-11 15:20 | NUR ---
PET SITTINGLOAN AND CREDIT MANAGER SI: PNA,BRONCHOSPASM T. 98.6 HR 72 RR 19 B/P 114/69 RA 98% DUPLEX STUDY=NEGATIVE BILATERAL IS: CEFTRIAXONE IV SOLU MEDROL IV ALB HHN IVF NS @ 75ML/HR MED/SURG STATUS
[2018-06-11 16:00] VITALS: BP 134/70
--- NOTE | 2018-06-11 19:49 | NUR ---
HAND-OFF: Report given to JARET Middleton.
--- NOTE | 2018-06-11 19:52 | NUR ---
NURSE NOTES: Received patient awake,alert,verbal,ambulatory,without complaints.
[2018-06-11 20:00] VITALS: BP 132/70
[2018-06-11] MEDS: ALPRAZolam 0.5mg tab ORAL SCH (21:15)
[2018-06-12] MEDS: 1/2NS w/KCl 20mEq 1000ml 1,000 ML IV SCH (03:13)
[2018-06-12] MEDS: Zolpidem 5mg tab ORAL PRN (03:13)
[2018-06-12 04:00] VITALS: BP 122/70
--- NOTE | 2018-06-12 07:15 | NUR ---
HAND-OFF: Report given to Jenni Pitts RN.
--- NOTE | 2018-06-12 07:18 | NUR ---
NURSE NOTES: Patient alert x4, on room air, no sign of distress and shortness of breath; IV RFA running fluid. Bed at lowest position, side rails up x2, breaks engaged. Commod within reach. Will keep monitoring.
[2018-06-12 08:00] VITALS: BP 128/71
[2018-06-12] MEDS: Benzonatate 100mg Perles ORAL SCH ×3 (09:20→17:09)
[2018-06-12] MEDS: Docusate 250mg cap ORAL SCH (09:20)
[2018-06-12] MEDS: Heparin 5000 units/ml inj SUBQ SCH (09:21)
[2018-06-12] MEDS: Aspirin Baby 81mg ORAL SCH (09:21)
[2018-06-12] MEDS: Solu-MEDROL 40mg Inj IVP PRN (09:21)
[2018-06-12 12:00] VITALS: BP 125/68
[2018-06-12] MEDS: cefTRIAXone 1 GM in D5W 55 ML IVPB SCH (12:30)
--- NOTE | 2018-06-12 14:27 | General Progress Note ---
Assessment/Plan Assessment/Plan Resolving Pneumonia - DC IV ABx COPD - bronchodilators DJD- symptomatic Rx R/O DVT - Duplex negative. Subjective Allergies: Coded Allergies: MORPHINE (Unverified Allergy, Intermediate, breakout, 12/30/11) Subjective Less SOB. Objective Last 24 Hour Vital Signs Date Time Temp Pulse Resp B/P (MAP) Pulse Ox O2 Delivery O2 Flow Rate FiO2 06/12/18 12:00 96.9 84 18 125/68 (87) 96 06/12/18 09:20 90 128/71 06/12/18 09:00 Room Air Room Air 06/12/18 08:00 98.0 90 18 128/71 (90) 95 06/12/18 07:36 94 18 Room Air 21 06/12/18 04:00 98.4 78 16 122/70 (87) 96 06/11/18 21:30 79 18 96 Room Air 21 06/11/18 21:20 77 20 93 Room Air 21 06/11/18 21:00 Room Air Room Air 06/11/18 20:21 82 18 Room Air 21 06/11/18 20:00 97.7 82 18 132/70 (90) 95 06/11/18 16:15 98.6 06/11/18 16:00 98.2 83 20 134/70 (91) 97 Intake and Output 06/11/18 06/12/18 19:00 07:00 Intake Total 1095 ml 1210 ml Balance 1095 ml 1210 ml Intake Oral 720 ml 340 ml IV Total 375 ml 870 ml # Voids 5 3 Height (Feet): 4 Height (Inches): 11.00 Weight (Pounds): 229 Objective Morbidly obese. Cv RR Lungs CTA Abd pendulous. SNT. BS + E No GIANNAE Kiko Walter MD Jun 12, 2018 14:27
[2018-06-12] MEDS ORDERED: ACETAMINOPHEN500 MG ORAL (14:33)
[2018-06-12] MEDS ORDERED: SEROQUEL100 MG ORAL (14:33)
[2018-06-12] MEDS ORDERED: AMOX TR-K CLV1 EAC2 ORAL (14:33)
--- NOTE | 2018-06-12 14:37 | Discharge Instructions ---
Discharge Instructions Discharge Instructions Diet: regular Resume Normal Activity?: Yes Activity: resume normal activities Follow Up Orders Follow up with my office in 3 weeks For Congestive Heart Failure Reminder Report to your physician any weight gain of 5 pounds or more in one week. Kiko Walter MD Jun 12, 2018 14:37
[2018-06-12 16:00] VITALS: BP 127/61
--- NOTE | 2018-06-12 16:01 | NUR ---
*-* INSURANCE *-* CLINICALS HAVE BEEN FAXED TO: MARIANA FLYNNM:GERARDO JARRELL P:[phone] F:[phone] REF# [id number] [phone]
[2018-06-12] MEDS: traMADol 50mg tab ORAL PRN (17:09)
--- NOTE | 2018-06-12 18:42 | NUR ---
NURSE NOTES: Patient discharged around 1830, accompanied by friend; patient was walking, vitals were stable; belonging lists singed by discharging nurse and patient. Patient's own medication from our pharmacy given back to patient. IV access and name tag removed upon discharge. Patient teaching given regarding patient's diagnosis and when to seek medical help, also medications side effects.
[2018-06-12] MEDS ORDERED: Augmentin 875mg Tab ORAL SCH (21:00)
--- NOTE | 2018-06-13 10:10 | Discharge Summary ---
Discharge Summary Discharge Summary _ DATE OF ADMISSION: 06/09/2018 DATE OF DISCHARGE: 06/12/2018 DISCHARGED BY: Dr. Kiko Walter BRIEF HOSPITAL COURSE: Patient is a 52-year-old female, who presented to ED due to productive yellow cough and gradual developing shortness of breath. She has medical history significant for morbid obesity, degenerative joint disease, opiate dependence, chronic low back pain, anxiety, hypertensive cardiovascular disease, GERD, polypharmacy and status post right breast lumpectomy for breast CA. On evaluation at the ED, blood pressure was 108/141, pulse rate 93. She was saturating 100% on room air. She was afebrile. Blood work did not isolate any growth. Hemoglobin and hematocrit were stable. Electrolytes were normal. EKG showed no injury. Chest x-ray read by ER physician showed right infiltrates. Then admitted for diagnosis of pneumonia. She was given bronchodilators. She was given IV Rocephin. She was placed on IV Solu-Medrol. Influenza screen was negative. Venous duplex of bilateral lower extremity was negative for acute DVT. She was saturating well on room air. Blood cultures were negative. IV antibiotics were discontinued She was eventually discharged home. FINAL DIAGNOSES: Resolving pneumonia COPD exacerbation DJD r/o DVT-duplex negative DISPOSITION: Patient was discharged home. DISCHARGE MEDICATIONS: Refer to Discharge Medication List. DISCHARGE INSTRUCTIONS: Follow-up in 3 weeks. I have been assigned to complete a discharge summary on this account, I was not involved with the patient's management. Bela Mcfadden NP Jun 13, 2018 10:10
== END 2018-06-12 18:33 | disposition home or self-care (01) | DRG 190 ==
LOC: EMR 15:38 → 4E 17:00 → EDBEDREQ 18:42 → 4E 21:52
DX: J44.0 Chronic obstructive pulmonary disease with (acute) lower respiratory infection (principal); J18.9 Pneumonia, unspecified organism; Z68.43 Body mass index [BMI] 50.0-59.9, adult; F11.20 Opioid dependence, uncomplicated; J44.1 Chronic obstructive pulmonary disease with (acute) exacerbation; J98.01 Acute bronchospasm; E66.01 Morbid (severe) obesity due to excess calories; M19.90 Unspecified osteoarthritis, unspecified site; G89.29 Other chronic pain; M54.5 Low back pain; F41.9 Anxiety disorder, unspecified; I11.9 Hypertensive heart disease without heart failure; K21.9 Gastro-esophageal reflux disease without esophagitis; Z85.3 Personal history of malignant neoplasm of breast; Z88.6 Allergy status to analgesic agent
CPT/HCPCS: 36415; 71045; 80053; 81003; 82550; 83605; 83880; 84484; 85025; 85610; 85730; 86710; 87040; 93005; 93970; 94640; 94664; 96361; 96365; 96368; 96375; 96376; 99285; J2405

== ENCOUNTER 2018-10-22 11:42 | Emergency (ER) | payer OTHER, MEDICAID ==
[~2018-10-22] VITALS: Ht 149.9 cm; Wt 98.4 kg
[~2018-10-22 11:42] MED LIST changes: +AMBIEN10 M1 ORAL; +AMOX TR-K CLV1 EAC2 ORAL; +MELOXICAM15 MG PO; +MULTIVITAMINS1 EAC2 ORAL; +SEROQUEL100 MG ORAL; +TENORMIN50 MG ORAL; +VITAMIN D1000 UNI1 ORAL
[2018-10-22 12:00] VITALS: BP 145/84
--- NOTE | 2018-10-22 12:00 | NUR ---
ED Nurse Note: pt walked in due to skin rash and pain on the left leg and ithiness on left upper body. pt stated she was seen in [facility] for the same reason and was prescribed tramadol and doxycycline but pt is vomiting when she is taking doxycycline, pt is complaining of 9/10 pain. pt not in acute distress. vs stable. will continue to monitor.
[2018-10-22] MEDS ORDERED: Ketorolac 30mg Inj IM ONE (12:15)
[2018-10-22] MEDS ORDERED: PERCOCET 5-3251 EACH ORAL (13:19)
[2018-10-22] MEDS ORDERED: ACYCLOVIR400 MG ORAL (13:19)
[2018-10-22] MEDS ORDERED: BENADRYL25 MG ORAL (13:19)
[2018-10-22] MEDS ORDERED: CEPHALEXIN500 MG ORAL (13:20)
[2018-10-22] MEDS ORDERED: BACTRIM DS TAB1 EAC1 ORAL (13:20)
[2018-10-22 13:25] VITALS: BP 128/80
--- NOTE | 2018-10-22 13:25 | NUR ---
ER DISCHARGE NOTE: Patient is cleared to be discharged per ERMD, pt is aox4, on room air, with stable vital signs. pt was given dc and prescription instructions, pt was able to verbalize understanding, pt id band removed without complications. pt is able to ambulate with steady gait. pt took all belongings and left with her family member.
--- NOTE | 2018-10-22 13:52 | Emergency Room Report ---
History of Present Illness General Chief Complaint: Skin Rash/Abscess Source: Patient Present Illness HPI Patient presents emergency department today complaining of left lower extremity pain. Patient states that around the area of the thigh she had suffered a spider bite. She actually killed a spider. She states that there a couple of bites which look like it became infected and she expressed the pus from it. She was seen at [facility]. This bite actually occurred a few days ago. At [facility] she is was started on some doxycycline. She states that it seems to be upsetting her stomach and the redness is getting worse. In addition patient started to get spots of the parts of her leg which appeared to be crusting erythematous blotchy in the L4 distribution pattern. It only involves her left leg. She states that is very painful and feels like the pain is deep inside. She denies difficulty ambulating. Denies any dysuria urinary frequency. Denies any fever nausea vomiting diarrhea chills. Patient does admit to having chickenpox in the past. No other complaints are noted. No other modifying factors. No other associated signs and symptoms. No other complaints were noted. Allergies: Coded Allergies: MORPHINE (Unverified Allergy, Intermediate, breakout, 12/30/11) Patient History Past Medical History: none Past Surgical History: none Social History: Denies: smoking, alcohol use, drug use Last Menstrual Period: menopause Now: No Reviewed Nursing Documentation: PMH: Agreed; PSxH: Agreed Nursing Documentation-[facility] Hx Cardiac Problems: Yes Hx Hypertension: Yes Hx Pacemaker: No - anemia Hx Asthma: Yes Hx COPD: No - spine surgery Hx Diabetes: No - borderline Hx Cancer: Yes - right breast ca Hx Gastrointestinal Problems: Yes Hx Dialysis: Yes - 11/2015-02/2016 Hx Neurological Problems: Yes Hx Cerebrovascular Accident: No Hx Seizures: No Hx Neurologic Surgery: Yes - LUMBAR FUSION-2000 Review of Systems All Other Systems: negative except mentioned in HPI Physical Exam Vital Signs Date Time Temp Pulse Resp B/P (MAP) Pulse Ox O2 Delivery O2 Flow Rate FiO2 10/22/18 11:53 98.2 96 16 145/84 (104) 96 Room Air Sp02 EP Interpretation: reviewed, normal General Appearance: normal inspection, well appearing, no apparent distress, alert Head: atraumatic Eyes: bilateral eye normal inspection ENT: normal ENT inspection, hearing grossly normal, normal voice Neck: normal inspection, full range of motion, supple, no bony tend Respiratory: normal inspection, lungs clear, normal breath sounds, no respiratory distress, no retraction, no wheezing Cardiovascular #1: regular rate, rhythm, no edema Gastrointestinal: normal inspection, normal bowel sounds, non tender, soft, no guarding, no hernia Genitourinary: no CVA tenderness Musculoskeletal: back normal, normal range of motion, other - Erythema left lower extremity with some vesicular eruptions consistent with shingles versus cellulitis Neurologic: normal inspection, alert, responsive, speech normal Psychiatric: normal inspection, judgement/insight normal, mood/affect normal Skin: other - Rash and left lower semi-consistent with cellulitis versus shingles Medical Decision Making Diagnostic Impression: Primary Impression: Shingles Additional Impression: Cellulitis ER Course Patient presents emergency department today complaint left lower extreme pain. Differential considerations include cellulitis abscess shingles lymph adenopathy DVT just name a few. Patient's exam is consistent with mild cellulitis and superimposing singles as well. Given the severity of pain. I feel the patient would benefit from pain medications. Patient was given acyclovir as well as Keflex and Bactrim. Last Vital Signs Date Time Temp Pulse Resp B/P (MAP) Pulse Ox O2 Delivery O2 Flow Rate FiO2 10/22/18 13:25 98.0 90 18 128/80 98 Room Air Status: improved Disposition: HOME, SELF-CARE Condition: Stable Scripts Trimethoprim/Sulfamethoxazole 160/800* (BACTRIM DS TABLET*) 1 Each Tablet 1 TAB ORAL Q12H, #14 TAB 0 Refills Prov: Roni Goodrich MD 10/22/18 Cephalexin* (KEFLEX*) 500 Mg Capsule 500 MG ORAL EVERY 6 HOURS for 7 Days, CAP Prov: Roni Goodrich MD 10/22/18 Acyclovir* (ACYCLOVIR*) 400 Mg Tablet 400 MG ORAL FIVE TIMES A DAY for 10 Days, TAB Prov: Roni Goodrich MD 10/22/18 Diphenhydramine Hcl* (BENADRYL*) 25 Mg Capsule 25 MG ORAL Q6H PRN for Itching, #20 CAP Prov: Roni Goodrich MD 10/22/18 Oxycodone/Acetaminophen 5-325* (PERCOCET 5-325 MG TABLET*) 1 Each Tablet 1 TAB ORAL Q4H PRN for For Pain, #15 TAB 0 Refills Prov: Roni Goodrich MD 10/22/18 Referrals: NOT CHOSEN IPA/MD,REFERRING (PCP) Patient Instructions: Shingles, [id number], Cellulitis, [id number] Roni Goodrich MD Oct 22, 2018 13:52
== END 2018-10-22 13:25 | disposition home or self-care (01) ==
LOC: EMR 13:21
DX: B02.9 Zoster without complications (principal); L03.116 Cellulitis of left lower limb; Z88.6 Allergy status to analgesic agent; I10 Essential (primary) hypertension; Z85.3 Personal history of malignant neoplasm of breast; Z98.1 Arthrodesis status
CPT/HCPCS: 96372; 99283; J1885

== ENCOUNTER 2018-10-25 14:29 | Emergency (ER) | payer OTHER, MEDICAID ==
[~2018-10-25] VITALS: Ht 149.9 cm; Wt 99.3 kg
[~2018-10-25 14:29] MED LIST changes: +ACYCLOVIR400 MG ORAL; +BACTRIM DS TAB1 EAC1 ORAL; +BENADRYL25 MG ORAL; +CEPHALEXIN500 MG ORAL; +PERCOCET 5-3251 EACH ORAL
[2018-10-25 14:34] VITALS: BP 106/74
--- NOTE | 2018-10-25 14:50 | Emergency Room Report ---
History of Present Illness General Chief Complaint: Pain Source: Medical Record Present Illness HPI 53-year-old female with history of arthritis is a limited blood pressure currently controlled here complaining of pain in left knee and left thigh that started few days ago. Denies injury or fall. Patient was here 3 days ago due to a painful and pruritic rash on the same side that she is complaining of pain today was diagnosed with shingles and cellulitis given proper medication. Patient reports that she is compliant with taking his medication also has a prescription for Percocet who has been taking. Patient previously went to a different hospital and was given doxycycline which made her stomach upset and did not take that. Patient expresses that 1 of her doctors had told her not to take any ibuprofen however is requesting a Toradol injection when I explained to her that they are in the same group of family she said that she only did not take Motrin but okay to take naproxen, ibuprofen, Toradol. Patient appears confused at first says that she has had kidney injury many years ago and currently does not have any kidney injury. And her records showed that she is only allergic to morphine. Patient denies tingling and numbness. Denies pain radiation, chest pain, shortness of breath, palpitation, abdominal pain, nausea vomiting. Patient has not yet made an appointment with her primary care physician. Allergies: Coded Allergies: MORPHINE (Unverified Allergy, Intermediate, breakout, 12/30/11) Patient History Past Medical History: see triage record Past Surgical History: unable to obtain Pertinent Family History: none Last Menstrual Period: menopause Now: No Immunizations: UTD Reviewed Nursing Documentation: PMH: Agreed; PSxH: Agreed Nursing Documentation-PMH Past Medical History: No History, Except For Hx Cardiac Problems: Yes Hx Hypertension: Yes Hx Pacemaker: No - anemia Hx Asthma: Yes Hx COPD: No - spine surgery Hx Diabetes: No - borderline Hx Cancer: Yes - right breast ca Hx Gastrointestinal Problems: Yes Hx Dialysis: Yes - 11/2015-02/2016 Hx Neurological Problems: Yes Hx Cerebrovascular Accident: No Hx Seizures: No Hx Neurologic Surgery: Yes - LUMBAR FUSION-2000 Review of Systems All Other Systems: negative except mentioned in HPI Physical Exam Vital Signs Date Time Temp Pulse Resp B/P (MAP) Pulse Ox O2 Delivery O2 Flow Rate FiO2 10/25/18 14:34 98.1 93 18 106/74 98 Room Air Sp02 EP Interpretation: reviewed, normal General Appearance: normal inspection, well appearing, no apparent distress, alert, GCS 15 Head: normocephalic, atraumatic Eyes: bilateral eye normal inspection, bilateral eye PERRL ENT: normal ENT inspection, hearing grossly normal, normal pharynx, no angioedema Neck: normal inspection, full range of motion, supple, thyroid normal Respiratory: chest non-tender, lungs clear, normal breath sounds, no rhonchi, no retraction Cardiovascular #1: normal peripheral pulses, regular rate, rhythm, no edema, no murmur Cardiovascular #2: 2+ dorsalis pedis (R), 2+ dorsalis pedis (L) Gastrointestinal: normal inspection, non tender, soft Rectal: deferred Genitourinary: no CVA tenderness Musculoskeletal: normal inspection, back normal, gait/station normal, normal range of motion, no calf tenderness Neurologic: normal inspection, alert, oriented x3, responsive Psychiatric: normal inspection, judgement/insight normal, memory normal Skin: other - Vesicular rash on left thigh that was previously diagnosed as shingles and cellulitis Lymphatic: normal inspection, no adenopathy Medical Decision Making PA Attestation All diagnoses and treatment plans were reviewed and discussed with my supervising physician Dr. Castro Diagnostic Impression: Primary Impression: Arthritic-like pain Additional Impression: Neuropathic pain ER Course 53-year-old female with history of arthritis is a limited blood pressure currently controlled here complaining of pain in left knee and left thigh that started few days ago. Denies injury or fall. Patient was here 3 days ago due to a painful and pruritic rash on the same side that she is complaining of pain today was diagnosed with shingles and cellulitis given proper medication. Patient reports that she is compliant with taking his medication also has a prescription for Percocet who has been taking. Patient previously went to a different hospital and was given doxycycline which made her stomach upset and did not take that. Patient expresses that 1 of her doctors had told her not to take any ibuprofen however is requesting a Toradol injection when I explained to her that they are in the same group of family she said that she only did not take Motrin but okay to take naproxen, ibuprofen, Toradol. Patient appears confused at first says that she has had kidney injury many years ago and currently does not have any kidney injury. And her records showed that she is only allergic to morphine. Patient denies tingling and numbness. Denies pain radiation, chest pain, shortness of breath, palpitation, abdominal pain, nausea vomiting. Patient has not yet made an appointment with her primary care physician. Ddx considered but are not limited to : Arthritic-like pain, neuropathic pain secondary to cellulitis and shingles, left thigh sprain Vital signs: are WNL, pt. is afebrile H&PE are most consistent with: Arthritic-like pain, neuropathic pain secondary to cellulitis and shingles ORDERS: Toradol IM, naproxen, hydrocortisone cream ED INTERVENTIONS: Toradol DISCHARGE: At this time pt. is stable for d/c to home. Will provide printed patient care instructions, and any necessary prescriptions. Care plan and follow up instructions have been discussed with the patient prior to discharge. At this time no need for x-ray as it was noted injury secondary to a follow- up with a primary care provider take naproxen as needed she also has some Percocet patient to follow-up with pain management in order to manage her pain is chronic. Return to emergency room if worsening symptoms Last Vital Signs Date Time Temp Pulse Resp B/P (MAP) Pulse Ox O2 Delivery O2 Flow Rate FiO2 10/25/18 14:34 98.1 93 18 106/74 (85) 98 Room Air Disposition: HOME, SELF-CARE Condition: Stable Scripts Hydrocortisone/Aloe Vera 1%* (HYDROCORTISONE-ALOE 1% CREAM*) Y Cr 1 APPLIC TOPIC Q6H PRN for Itching, #30 GM Prov: Dhiraj Avila 10/25/18 Naproxen* (NAPROXEN*) 500 Mg Tablet 500 MG ORAL TWICE A DAY, #30 TAB Prov: Dhiraj Avila 10/25/18 Patient Instructions: Arthritis, [id number], Neuropathic Pain Additional Instructions: Follow-up with primary care provider for further assessment as well as pain management referral. Due to your extensive history of osteoarthritis as well as your recent diagnosis of shingles you are now experiencing increased arthritic pain in addition to neuropathic pain secondary to shingles. He indicated that you are okay with taking Toradol injection as well as taking naproxen and have no allergies to the ibuprofen family. Return to the emergency room if shortness of breath, chest pain, and worsening symptoms. Dhiraj Avila Oct 25, 2018 14:50
[2018-10-25] MEDS ORDERED: NAPROXEN500 M2 ORAL (14:51)
[2018-10-25] MEDS: Ketorolac 30mg Inj IM ONE (14:51)
[2018-10-25] MEDS ORDERED: HYDROCORTISONE-30 GM TOPIC (15:00)
[2018-10-25 15:08] VITALS: BP 115/84
--- NOTE | 2018-10-25 15:08 | NUR ---
ER DISCHARGE Pt was seen due to singles pain. Patient is cleared to be discharged per PA, pt is aox4, on room air, with stable vital signs. pt was given dc and prescription instructions, pt was able to verbalize understanding, pt id band removed without complications. pt is able to ambulate with steady gait. pt took all belongings.
== END 2018-10-25 15:08 | disposition home or self-care (01) ==
LOC: EMR 15:00
DX: M25.562 Pain in left knee (principal); G57.92 Unspecified mononeuropathy of left lower limb; R21 Rash and other nonspecific skin eruption; I10 Essential (primary) hypertension; Z98.1 Arthrodesis status; Z85.3 Personal history of malignant neoplasm of breast
CPT/HCPCS: 96372; 99283; J1885

== ENCOUNTER 2018-11-04 10:08 | Emergency (ER) | payer OTHER, MEDICAID ==
[~2018-11-04] VITALS: Ht 149.9 cm; Wt 97.1 kg
[~2018-11-04 10:08] MED LIST changes: +HYDROCORTISONE-30 GM TOPIC; +NAPROXEN500 M2 ORAL
[2018-11-04] MEDS ORDERED: ATENOLOL25 MG ORAL (10:21)
--- NOTE | 2018-11-04 10:34 | NUR ---
ED Nurse Note: pt walked in due to pain on the left knee pain and lower back pain started 2 weeks ago, pt denies trauma, pt stated her pcp told her that it is shingles, pt stated that she cant go to sleep with the pain. will continue to monitor.
[2018-11-04 10:36] VITALS: BP 143/83
--- NOTE | 2018-11-04 10:55 | Emergency Room Report ---
History of Present Illness General Chief Complaint: Pain Source: Patient Present Illness HPI Patient presents with complaints of pain to the distal medial aspect of the left upper thigh Patient reports that her pain medication has not been improving her discomfort she reports that she has also been going to work and is having pain to the left lower back radiating to her left leg Denies any fall or trauma denies any chest pain or shortness of breath Patient complains of what she is being told as shingles and discomfort in the specific area Allergies: Coded Allergies: MORPHINE (Unverified Allergy, Intermediate, breakout, 12/30/11) Patient History Past Medical History: see triage record Pertinent Family History: none Now: No Reviewed Nursing Documentation: PMH: Agreed; PSxH: Agreed Nursing Documentation-PMH Past Medical History: No History, Except For Hx Cardiac Problems: No - HLD Hx Hypertension: Yes Hx Pacemaker: No - anemia Hx Asthma: Yes Hx COPD: No - spine surgery Hx Diabetes: No - borderline Hx Cancer: Yes - right breast ca Hx Gastrointestinal Problems: Yes Hx Dialysis: Yes - 11/2015-02/2016 Hx Neurological Problems: Yes Hx Cerebrovascular Accident: No Hx Seizures: No Hx Neurologic Surgery: Yes - LUMBAR FUSION-2000 Review of Systems All Other Systems: negative except mentioned in HPI Physical Exam Vital Signs Date Time Temp Pulse Resp B/P (MAP) Pulse Ox O2 Delivery O2 Flow Rate FiO2 11/04/18 10:15 98.1 90 17 143/83 (103) 100 Room Air Sp02 EP Interpretation: reviewed, normal General Appearance: well appearing, no apparent distress Head: normocephalic, atraumatic Eyes: bilateral eye PERRL, bilateral eye EOMI ENT: normal pharynx Neck: supple Respiratory: lungs clear, no respiratory distress Cardiovascular #1: regular rate, rhythm Gastrointestinal: non tender Musculoskeletal: normal inspection - Ambulating without focal deficit Neurologic: alert, oriented x3 Skin: other - Very specific location at the medial aspect just above the knee on the left medial thigh shows evidence of scabbed 3-4 circular lesions no obvious fluctuance no other spread or dermatomal spread Lymphatic: no adenopathy Medical Decision Making Diagnostic Impression: Primary Impression: Shingles ER Course The area in question does appear to be possibly related to shingles area is very small in nature 2-3 areas of vesicular lesions that appear to be old and healed No secondary fluctuance or cellulitis Last Vital Signs Date Time Temp Pulse Resp B/P (MAP) Pulse Ox O2 Delivery O2 Flow Rate FiO2 11/04/18 10:36 98.1 102 17 143/83 100 Room Air Status: improved Disposition: HOME, SELF-CARE Condition: Improved Scripts Lidocaine HCL 2% Jelly* (Lidocaine Jelly 2%*) 5 Ml Jel.pf.erica 5 ML TOPIC DAILY for 5 Days, ML Prov: Angie Orta DO 11/04/18 Referrals: NON PHYSICIAN (PCP) Additional Instructions: Patient is provided with the discharge instructions notified to follow up with primary doctor in the next 2-3 days otherwise return to the er with any worsening symptoms. Please note that this report is being documented using [employer] technology. This can lead to erroneous entry secondary to incorrect interpretation by the dictating instrument. Angie Orta DO Nov 04, 2018 10:55
[2018-11-04] MEDS ORDERED: LD2JL30 TOPIC (11:00)
[2018-11-04] MEDS ORDERED: Ketorolac 60mg Inj IM ONE (11:00)
[2018-11-04 11:20] VITALS: BP 143/83
--- NOTE | 2018-11-04 11:20 | NUR ---
ER DISCHARGE NOTE: Patient is cleared to be discharged per ERMD, pt is aox4, on room air, with stable vital signs. pt was given dc and prescription instructions, pt was able to verbalize understanding, pt id band removed without complications. pt is able to ambulate with steady gait. pt took all belongings.
== END 2018-11-04 11:20 | disposition home or self-care (01) ==
LOC: EMR 10:40
DX: B02.9 Zoster without complications (principal); Z88.6 Allergy status to analgesic agent; I10 Essential (primary) hypertension; E78.5 Hyperlipidemia, unspecified; Z85.3 Personal history of malignant neoplasm of breast; Z98.1 Arthrodesis status
CPT/HCPCS: 96372; 99283

== ENCOUNTER 2018-11-28 05:14 | Emergency (ER) | payer OTHER, MEDICAID ==
[~2018-11-28] VITALS: Ht 149.9 cm; Wt 106.6 kg
[~2018-11-28 05:14] MED LIST changes: +LD2JL30 TOPIC
--- NOTE | 2018-11-28 05:21 | NUR ---
ED Nurse Note: PT AMBULATED TO ED C/O RIGHT EAR PAIN X 2 DAYS. Pt is AO x 4times, VSS, on room air no distress. CAIOD seen Pt at bedside.
[2018-11-28 05:23] VITALS: BP 135/80
--- NOTE | 2018-11-28 05:26 | Emergency Room Report ---
History of Present Illness General Chief Complaint: Earache Source: Patient Present Illness HPI 53-year-old female presents with right ear pain started 2 days prior to arrival , patient has been putting olive oil inside her right ear, she denies any aggravating or relieving factors, moderate severity, sharp in nature, no fever no chills no chest pain no shortness of breath patient presents for evaluation Allergies: Coded Allergies: MORPHINE (Unverified Allergy, Intermediate, breakout, 12/30/11) Patient History Past Medical History: see triage record Last Menstrual Period: 2012 LAST MENSTRUAL Now: No Reviewed Nursing Documentation: PMH: Agreed; PSxH: Agreed Nursing Documentation-PMH Past Medical History: No History, Except For Hx Hypertension: Yes Hx Pacemaker: No - anemia Hx Asthma: Yes Hx COPD: No - spine surgery Hx Diabetes: Yes Hx Cancer: Yes - right breast ca Hx Gastrointestinal Problems: Yes Hx Dialysis: Yes - 11/2015-02/2016 Hx Neurological Problems: Yes Hx Cerebrovascular Accident: No Hx Seizures: No Hx Neurologic Surgery: Yes - LUMBAR FUSION-2000 Review of Systems All Other Systems: negative except mentioned in HPI Physical Exam Vital Signs Date Time Temp Pulse Resp B/P (MAP) Pulse Ox O2 Delivery O2 Flow Rate FiO2 11/28/18 05:16 97.9 84 16 112/77 (89) 96 Room Air Sp02 EP Interpretation: reviewed, normal General Appearance: well appearing, no apparent distress, alert Head: normocephalic, atraumatic Eyes: bilateral eye PERRL, bilateral eye EOMI ENT: uvula midline, moist mucus membranes, other - Right ear: Inflamed canal, loss of light reflex, left ear normal Neck: supple, thyroid normal, supple/symm/no masses Respiratory: lungs clear, no respiratory distress, no retraction, no accessory muscle use Cardiovascular #1: normal peripheral pulses, regular rate, rhythm, no edema, no gallop, no murmur Gastrointestinal: non tender, soft, no guarding, no rebound Musculoskeletal: normal inspection Neurologic: alert, oriented x3 Psychiatric: mood/affect normal Skin: no rash, warm/dry Medical Decision Making Diagnostic Impression: Primary Impression: Right otitis externa Qualified Codes: H60.501 - Unspecified acute noninfective otitis externa, right ear Additional Impression: Right otitis media Qualified Codes: H66.91 - Otitis media, unspecified, right ear ER Course Patient with right ear pain, she inflamed the right canal and there is a loss of right light reflex. Will provide antibiotics disposition home with return precautions Last Vital Signs Date Time Temp Pulse Resp B/P (MAP) Pulse Ox O2 Delivery O2 Flow Rate FiO2 11/28/18 05:16 97.9 84 16 112/77 (89) 96 Room Air Disposition: HOME, SELF-CARE Condition: Stable Scripts Neomycin/Polymyxin B Sulf/Hc ([id number] EAR SOLN) 10 Ml Solution 10 ML OT QID for 10 Days, #1 UNIT Prov: Carter Pina MD 11/28/18 Amoxicillin (AMOXICILLIN) 875 Mg Tablet 875 MG PO Q12H for 10 Days, #20 TAB 0 Refills Prov: Carter Pina MD 11/28/18 Referrals: [facility] Patient Instructions: Otitis Media, Adult, [id number], Otitis Externa, Easy- to-Read Additional Instructions: The patient was provided with discharge instructions, notified to follow-up with a primary care doctor and or specialist in the next 24-48 hours, and to return to the ED if they have worsening of their symptoms. Please note that this report is being documented using [employer] technology. This can lead to erroneous entry secondary to incorrect interpretation by the dictating instrument. Carter Pina MD Nov 28, 2018 05:26
[2018-11-28] MEDS ORDERED: NEOMYCIN-POLYMY10 ML OT (05:29)
[2018-11-28] MEDS ORDERED: AMOXICILLIN875 MG PO (05:29)
[2018-11-28] MEDS ORDERED: Acetaminophen 500mg (ES) tab ORAL ONE (05:30)
[2018-11-28 05:37] VITALS: BP 135/80
== END 2018-11-28 05:41 | disposition home or self-care (01) ==
LOC: EMR 05:30
DX: H60.501 Unspecified acute noninfective otitis externa, right ear (principal); H66.91 Otitis media, unspecified, right ear; Z98.1 Arthrodesis status; J45.909 Unspecified asthma, uncomplicated; I10 Essential (primary) hypertension; Z85.3 Personal history of malignant neoplasm of breast; Z88.6 Allergy status to analgesic agent
CPT/HCPCS: 99282